=== PATIENT | female | born 1945 | race Caucasian/White ===

== ENCOUNTER 2020-08-23 13:17 | Outpatient (CLI) | payer MEDICARE, SELFPAY | END 2020-08-23 13:18 | disposition home or self-care (01) | LOC: ANHCOVIDVC 13:17 | PROVIDERS: PCP Family Medicine Sports Medicine | DX: Z23 Encounter for immunization (principal) | CPT/HCPCS: 0001A; 91300 ==

== ENCOUNTER 2020-09-13 13:05 | Outpatient (CLI) | payer MEDICARE, SELFPAY | END 2020-09-13 13:06 | disposition home or self-care (01) | LOC: ANHCOVIDVC 13:05 | PROVIDERS: PCP Family Medicine Sports Medicine | DX: Z23 Encounter for immunization (principal) | CPT/HCPCS: 0002A; 91300 ==

== ENCOUNTER 2021-02-23 15:44 | Emergency (ER) | payer MEDICARE, SELFPAY ==
--- NOTE | ~2021-02-23 | XR_ITS ---
EXAMINATION: XR ankle LT min 3V DATE: 02/23/2021 16:13 INDICATION: Left ankle injury and pain. TECHNIQUE: 4 views of left ankle were obtained. COMPARISON: None. FINDINGS: Bone alignment is normal. No fracture. Joint spaces are well maintained. There is an enthes ophyte at plantar aspect of calcaneal tuberosity. IMPRESSION: 1. No fracture. Reviewed, dictated and finalized at location A. IMPRESSION: 1. No fracture.
[2021-02-23 15:55] VITALS: BP 134/97; PULSE 76; RESP 14; TEMP 36.2; O2SAT 97
--- NOTE | 2021-02-23 16:37 | ED.LOWEXIN ---
HPI - Extremity Injury (Lower) General Chief Complaint: Extremity Injury, Lower Stated Complaint: L ANKLE INJURY Time Seen by Provider: 02/23/21 15:55 Source: patient Mode of arrival: ambulatory Limitations: no limitations History of Present Illness HPI Narrative: This is a 75-year-old female that presents to the emergency department after a left ankle injury this afternoon. Reports she twisted her ankle walking down the steps. Denies falling. Reports since she has had pain in the ankle worse with movement and relieved with rest. Denies decreased range of motion or numbness. Related Data Allergies Allergy/AdvReac Type Severity Reaction Status Date / Time No Known Allergies Allergy Verified 02/23/21 15:58 Review of Systems Review of Systems: CONSTITUTIONAL: Denies fever MUSCULOSKELETAL: Reports joint pain, and myalgia. NEUROLOGIC: Denies numbness All systems reviewed & are unremarkable except as noted in HPI and below PMFSH Past Medical History Medical History (Updated 02/23/21 @ 16:41 by Zina Diaz PA-C) History of anxiety History of hyperlipidemia Social History Social History (Updated 02/23/21 @ 16:39 by Zina Diaz PA-C) Substance use: never Exam Narrative: GENERAL: Well-appearing, well-nourished, and in no acute distress. HEAD: Normocephalic, atraumatic. EYES: EOMI. EXTREMITIES: Normal range of motion. No edema or obvious deformity. Normal DP pulses. Normal sensation SKIN: Warm, dry, no rash. NEURO: No focal deficits. Alert and oriented x3. PSYCH: Normal mood and affect Course Vital Signs Vital signs: Vital Signs Temperature 97.2 F L 02/23/21 15:55 Pulse Rate 76 02/23/21 15:55 Respiratory Rate 14 02/23/21 15:55 Blood Pressure 134/97 H 02/23/21 15:55 Pulse Oximetry 97 02/23/21 15:55 Temperature 97.2 F L 02/23/21 15:55 Pulse Rate 76 02/23/21 15:55 Respiratory Rate 14 02/23/21 15:55 Blood Pressure 134/97 H 02/23/21 15:55 Pulse Oximetry 97 02/23/21 15:55 MDM - Extremity Injury (Lower) MDM Narrative Medical decision making narrative: Patient presents to the ER for left ankle injury this afternoon. Reports a twisting injury. She is neurovascularly intact. Left ankle x-rays without acute osseous abnormalities. Patient instructed on care of ankle sprain. She is to follow-up with her primary care doctor. She was given warnings to return to the ER Imaging Data Radiologist's impression: ITS Impressions Ankle X-Ray 02/23/21 16:15 IMPRESSION: 1. No fracture. Critical Care Time Critical Care Time Critical Care Time: No Discharge Plan Discharge Clinical Impression: Ankle sprain and strain Patient Disposition: Home, Self-Care Condition: Stable Instructions: Ankle Sprain (ED) Additional Instructions: Return to the emergency department if you experience fever, redness and swelling of your leg, numbness, or any other symptoms that are concerning to you Wear JAYANT wrap and use walker. No weight on the affected leg until able to bear weight without pain. Ice and elevate extremity. Pain medication as needed and directed. Follow up with your doctor for further care. Follow-up/Referrals: Luisito,Rad Phan MD [Primary Care Provider] - 1 Week
[2021-02-23 17:15] VITALS: BP 152/61; PULSE 64; RESP 18; TEMP 36.4; O2SAT 97
== END 2021-02-23 17:15 | disposition home or self-care (01) ==
PROVIDERS: Emergency Provider Emergency Medicine; PCP Family Medicine Sports Medicine
DX: S93.402A Sprain of unspecified ligament of left ankle, initial encounter (principal); S96.912A Strain of unspecified muscle and tendon at ankle and foot level, left foot, initial encounter; E78.5 Hyperlipidemia, unspecified; X50.9XXA Other and unspecified overexertion or strenuous movements or postures, initial encounter
CPT/HCPCS: 73610; 99283

== ENCOUNTER 2021-04-09 08:46 | Emergency (ER) | payer MEDICARE, SELFPAY ==
--- NOTE | ~2021-04-09 | XR_ITS ---
EXAMINATION: XR chest 2V DATE: 04/09/2021 09:58 INDICATION: Cough TECHNIQUE: PA and lateral views of the chest are obtained. COMPARISON: 06/18/2018 FINDINGS: The lungs are free of acute opacities. There is no pleural effusion or pneumothorax. The ca rdiomediastinal silhouette is normal. There is moderate thoracic spondylosis. IMPRESSION: 1. No acute cardiopulmonary abnormality. Reviewed, dictated and finalized at location A. ENSION CORD TIER
[2021-04-09 09:09] VITALS: BP 131/64; PULSE 66; RESP 16; TEMP 36.7
--- NOTE | 2021-04-09 09:38 | ECG_ITS ---
Measurements Intervals [place] Rate: 59 P: 28 NH: 145 QRS: -8 QRSD: 93 T: 11 QT: 411 QTc: 408 Interpretive Statements SINUS BRADYCARDIA BORDERLINE T WAVE ABNORMALITY- INFERIOR LEADS BASELINE ARTIFACT- I, II, III, AVR, AVL, AVF BORDERLINE ECG Electronically Signed On 04-09-2021 10:57:55 DIFFERENTIAL SPECIALIST by Gui Whelan D.O.
[2021-04-09 10:22] LABS: Basophils Absolute Auto 0.1 K/mm3 (0.0-0.1); Basophils Percent Auto 1.3 % (0.2-1.2); Eosinophils Absolute Auto 0.5 K/mm3 (0-0.3); Eosinophils Percent Auto 6.7 % (0-4.4); Hematocrit 40.8 % (37.0-47.0); Hemoglobin 13.6 g/dL (12.0-15.0); Immature Granulocyte Absolute 0.02 K/mm3 (0.00-0.031); Immature Granulocyte Percent A 0.3 % (0-0.5); Lymphocytes Absolute Auto 2.11 K/mm3 (0.9-3.2); Mean Corpuscular HGB Conc 33.3 g/dl (32-36); Mean Corpuscular Hemoglobin 32.8 pg (26-34); Mean Corpuscular Volume 98.3 fl (80-100); Mean Platelet Volume 10.6 fl (7.4-10.4); Monocytes Absolute Auto 0.7 K/mm3 (0.1-0.6); Monocytes Percent Auto 10.5 % (2.6-8.5); Neutrophils Absolute Auto 3.6 K/mm3 (1.3-6.7); Neutrophils Percent Auto 51.2 % (45.5-73.1); Platelet Count Result 216 k/mm3 (150-375); Red Blood Count 4.15 M/mm3 (4.2-5.4); Red Cell Distribution Width 12.4 % (11.5-14.5)
[2021-04-09 10:36] LABS: Alanine Aminotransferase 19 U/L (4-35); Albumin Level 3.9 g/dL (3.5-5.1); Alkaline Phosphatase 57 U/L (38-126); Anion Gap 5 mmol/L (8-16); Aspartate Amino Transferase 28 U/L (14-36); Bilirubin,Total 1.2 mg/dL (0.2-1.3); Blood Urea Nitrogen 9 mg/dL (7-17); Carbon Dioxide 29 mmol/L (22-30); Chloride 101 mmol/L (98-107); Estimated CRCL calculation 50 ml/min; Estimated Glomerular Filt Rate > 60; Glucose 113 mg/dL (65-110); Potassium 3.3 mmol/L (3.4-5.0); Sodium 135 mmol/L (137-145)
--- NOTE | 2021-04-09 11:22 | ED.GENADULT ---
HPI - General Adult General Chief complaint: Upper Respiratory Infection Stated complaint: congestion, cough Time Seen by Provider: 04/09/21 08:57 History of Present Illness HPI narrative: Patient is a 75-year-old female who presents ER with cough and cold symptoms. No fevers or chills or sweats. Reports she was having sinus congestion with postnasal drip. She has cough that is worse in the morning. Mild fatigue with exertion. No chest pain or chest pressure. She is up-to-date on her Covid vaccinations. No loss of taste or smell. No known sick contacts. Related Data Allergies Allergy/AdvReac Type Severity Reaction Status Date / Time No Known Allergies Allergy Verified 02/23/21 15:58 Review of Systems Review of Systems: All systems reviewed & are unremarkable except as noted in HPI and below Constitutional: Constitutional: Denies chills, Reports fatigue and Denies fever(s) ENT: Reports nasal congestion and Denies sore throat Cardiovascular: Cardiovascular: Denies chest pain, Denies rapid heart rate and Denies radiating jaw, neck or arm pain Respiratory: Respiratory: Reports cough, Denies dyspnea and Denies wheezing Gastrointestinal: Gastrointestinal: Denies abdominal pain, Denies nausea and Denies vomiting PMFSH Past Medical History Medical History (Updated 04/09/21 @ 11:29 by Santo Goodrich MD) History of anxiety History of hyperlipidemia History of seizures Surgical History Surgical History (Updated 04/09/21 @ 11:25 by Santo Goodrich MD) History of cholecystectomy History of partial hysterectomy Social History Social History (Updated 02/23/21 @ 16:39 by Zina Diaz PA-C) Substance use: never Exam Narrative: GENERAL: Well-appearing, well-nourished, and in no acute distress. HEAD: Normocephalic, atraumatic. EYES: PERRL and EOMI. CHEST: Clear to auscultation. No respiratory distress. HEART: Regular rate and rhythm. Normal peripheral pulses. ABDOMEN: Soft, nontender, nondistended. EXTREMITIES: Normal range of motion. No edema. SKIN: Warm, dry, no rash. NEURO: Alert and oriented x3. PSYCH: Normal mood and affect. Course Course Emergency Course: Patient resting comfortably. Informed of results. Discharge home. Vital Signs Vital signs: Vital Signs Temperature 98.1 F 04/09/21 09:09 Pulse Rate 66 04/09/21 09:09 Respiratory Rate 16 04/09/21 09:09 Blood Pressure 131/64 04/09/21 09:09 Temperature 98.1 F 04/09/21 09:09 Pulse Rate 66 04/09/21 09:09 Respiratory Rate 16 04/09/21 09:09 Blood Pressure 131/64 04/09/21 09:09 Medical Decision Making Vital Signs Vital Signs: Vital Signs Temperature 98.1 F 04/09/21 09:09 Pulse Rate 66 04/09/21 09:09 Respiratory Rate 16 04/09/21 09:09 Blood Pressure 131/64 04/09/21 09:09 Temperature 98.1 F 04/09/21 09:09 Pulse Rate 66 04/09/21 09:09 Respiratory Rate 16 04/09/21 09:09 Blood Pressure 131/64 04/09/21 09:09 Lab Data Result diagrams: 04/09/21 10:13 04/09/21 10:13 Labs: Lab Results 04/09/21 04/09/21 Range/Units 10:13 10:13 WBC 7.0 (4.5-10.0) K/mm3 RBC 4.15 L (4.2-5.4) M/mm3 Hgb 13.6 (12.0-15.0) g/dL Hct 40.8 (37.0-47.0) % MCV 98.3 (80-100) fl MCH 32.8 (26-34) pg MCHC 33.3 (32-36) g/dl RDW 12.4 (11.5-14.5) % Plt Count 216 (150-375) k/mm3 MPV 10.6 H (7.4-10.4) fl Immature Gran % (Auto) 0.3 (0-0.5) % Neut % (Auto) 51.2 (45.5-73.1) % Lymph % (Auto) 30.0 (18.3-44.2) % King % (Auto) 10.5 H (2.6-8.5) % Eos % (Auto) 6.7 H (0-4.4) % Baso % (Auto) 1.3 H (0.2-1.2) % Lymph # (Auto) 2.11 (0.9-3.2) K/mm3 King # (Auto) 0.7 H (0.1-0.6) K/mm3 Eos # (Auto) 0.5 H (0-0.3) K/mm3 Baso # (Auto) 0.1 (0.0-0.1) K/mm3 Abs Immat Gran (auto) 0.02 (0.00-0.031) K/mm3 Absolute Neuts (auto) 3.6 (1.3-6.7) K/mm3 Absolute Nucleated RBC 0.0 (0.0-0.012) K/mm3 Nucleated RBC
[2021-04-09 11:59] VITALS: BP 147/64; PULSE 60; RESP 18; O2SAT 99
== END 2021-04-09 12:00 | disposition home or self-care (01) ==
PROVIDERS: Emergency Provider Emergency Medicine; PCP Family Medicine Sports Medicine
DX: J06.9 Acute upper respiratory infection, unspecified (principal); E78.5 Hyperlipidemia, unspecified; R00.1 Bradycardia, unspecified; R94.31 Abnormal electrocardiogram [ECG] [EKG]
CPT/HCPCS: 36415; 71046; 80053; 85025; 93005; 99283

== ENCOUNTER → 2021-04-28 09:58 | Outpatient (CLI) | payer MEDICARE, SELFPAY ==
--- NOTE | ~2021-04-28 | DEXA_ITS ---
Bone Density Report Name: VAISHALI CELESTE Age: 75 Sex: Female Ethnicity: White Date of : 1945 Indication: postmenopausal; screening for osteoporosis; height loss; prior fracture; hysterectomy; Referring Provider: CARRIE, VIKI Phan Study: Bone densitometry was performed. Exam Date: April 28, 2021 Accession number: [id number] Bone Density: Region BMD T-score Z-score Classification AP Spine (L1-L4) 0.888 -1.4 1.1 Osteopenia Femoral Neck (Left) 0.497 -3.2 -1.0 Osteoporosis Total Hip (Left) 0.722 -1.8 0.1 Osteopenia Femoral Neck (Right) 0.504 -3.1 -1.0 Osteoporosis Total Hip (Right) 0.742 -1.6 0.2 Osteopenia Total Hip Mean 0.732 -1.7 0.2 Osteopenia World Health Organization criteria for BMD impression classify patients as: Normal (T-score at or above -1.0), Osteopenia (T-score between -1.0 and -2.5), or Osteoporosis (T-score at or below -2.5). 10-year Fracture Risk: FRAX not reported because: Some T-score for Spine Total or Hip Total or Femoral Neck at or below -2.5 Clinical Information Provided by Patient: Has had a low trauma fracture Has the following medical conditions: Hysterectomy Patient maximum height was 62.0 Menopause Age: 48 No regular weight bearing exercise Does not regularly consume dairy products Drinks caffeinated beverages Onset of menses at age 14 Number of children 2 Impression: The patient has established osteoporosis, based on the Left Femoral Neck T-score and the existence of a prior fracture. The patient has risk factors, including: previous fracture. Discussion: HIGH RISK OF FRACTURE. BONE DENSITY IS UNDESIRABLY LOW AT ONE OR MORE SKELETAL SITES, CONSISTENT WITH POSTMENOPAUSAL OSTEOPOROSIS. This patient's lowest T-score, in a patient who has previously fractured, meets the World Health Organization's (WHO) criteria for severe osteoporosis. In untreated patients, the risk of osteoporotic fracture increases approximately two-fold for each 1.0 SD decrease in T-score. Low bone density is not the only risk factor for fracture; also consider factors such as patient's age, frailty or poor health, risk of falling, risk of injury, previous osteoporotic fracture, family history of osteoporosis, cigarette smoking, low body weight, etc. Not everyone with low bone mineral density has osteoporosis; osteomalacia and other metabolic bone disorders should also be considered. Patients who have osteoporosis should be evaluated for specific diseases and conditions (secondary causes) that may cause or contribute to bone loss. The [place] Association of Clinical Endocrinologists (AACE) and National Osteoporosis Foundation (NOF) recommend pharmacologic intervention for all postmenopausal women whose T-score is in this range. The patient should follow a healthful lifestyle (good nutrition with adequate
== END ==
PROVIDERS: PCP Family Medicine Sports Medicine; Visit Provider Family Medicine Sports Medicine
DX: Z78.0 Asymptomatic menopausal state (principal); M85.88 Other specified disorders of bone density and structure, other site; M81.0 Age-related osteoporosis without current pathological fracture; M85.852 Other specified disorders of bone density and structure, left thigh; M85.851 Other specified disorders of bone density and structure, right thigh
CPT/HCPCS: 77080

== ENCOUNTER 2021-12-05 11:38 | Emergency (ER) | payer MEDICARE, SELFPAY ==
--- NOTE | ~2021-12-05 | XR_ITS ---
EXAMINATION: XR hip RT min 3V w AP pelvis DATE: 12/05/2021 12:47 INDICATION: Right hip pain TECHNIQUE: Anteroposterior view of the pelvis and anteroposterior, frog leg and crosstable lateral vi ews of the right hip were obtained. COMPARISON: None. FINDINGS: Alignment is normal. No fracture or suspected avascular necrosis. Bilateral hip joint spaces are rela tively preserved. Lower lumbar spondylosis with severe bilateral lower lumbar facet osteoarthritis. 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 IMPRESSION: 1. Normal right hip joint space with no acute osseous abnormality. Reviewed, dictated and finalized at location A.
--- NOTE | ~2021-12-05 | US_ITS ---
EXAMINATION:US venous doppler LE RT INDICATION:Right leg burning sensation with pain TECHNIQUE: Multiple grayscale, color flow and Doppler images of the right lower extremity deep venous systems were obtained and reviewed. COMPARISON:No prior studies for comparison. FINDINGS: The common femoral, superficial femoral and popliteal veins demonstrate normal respiratory variation, augmentation and compressibility. Color flow is also seen within the posterior tibial, pe roneal, greater saphenous and profunda veins. IMPRESSION: 1: No lower extremity deep venous thrombosis. Reviewed, dictated and finalized at location A.
[2021-12-05 11:48] VITALS: BP 154/72; PULSE 68; RESP 14; TEMP 36.7; O2SAT 96
--- NOTE | 2021-12-05 12:25 | ED.LOWEXIN ---
HPI - Extremity Injury (Lower) General Chief Complaint: Extremity Injury, Lower Stated Complaint: Right Leg Pain Time Seen by Provider: 12/05/21 12:13 History of Present Illness HPI Narrative: Pt complains of pain in entire right leg off and on since early October. Pt denies injury. Pt denies fever or swelling. Pt says she feels it up in her hip and all the way down to her right foot. Pt says it is worse when she moves it and bears weight but is present at rest as well. Related Data Allergies Allergy/AdvReac Type Severity Reaction Status Date / Time No Known Allergies Allergy Verified 02/23/21 15:58 Review of Systems Review of Systems: All systems reviewed & are unremarkable except as noted in HPI and below PMFSH Past Medical History Medical History (Updated 12/05/21 @ 13:14 by Keshia Hassan III, DO) History of anxiety History of hyperlipidemia History of seizures Surgical History Surgical History (Updated 04/09/21 @ 11:25 by Santo Goodrich MD) History of cholecystectomy History of partial hysterectomy Social History Social History (Updated 02/23/21 @ 16:39 by Zina Diaz PA-C) Substance use: never Exam Const: General: healthy appearing Nutritional Appearance: well nourished Orientation/consciousness: patient oriented x3 Limitations: no limitations Eyes: Conjunctivae: conjunctivae normal EOM: EOMs intact bilaterally Neck: Neck: normal visual inspection Chest: Chest palpation & inspection: normal inspection of the chest Resp: Effort & Inspection: normal respiratory effort Auscultation: clear to auscultation bilaterally Cardio: Rate: regular rate Rhythm: regular rhythm GI: GI Palp: Yes Soft to palpation Auscultation: normal bowel sounds Back/Spine/Pelvis: Back: no CVA tenderness Skin: General skin exam: normal color Rashes: no rashes Wounds: no wounds Neuro: General: patient oriented x3 Cranial nerves: Yes Nystagmus not present Speech: normal speech Extrem: General: normal to inspection, no clubbing, cyanosis or edema and no pedal edema Other: tender to palpation along lateral right leg and hip but no deformity nor swelling noted. Psych: Mental Status: mental status grossly normal Affect: normal affect Attitude: cooperative Course Vital Signs Vital signs: Vital Signs Temperature 98.0 F 12/05/21 11:48 Pulse Rate 68 12/05/21 11:48 Respiratory Rate 14 12/05/21 11:48 Blood Pressure 154/72 H 12/05/21 11:48 Pulse Oximetry 96 12/05/21 11:48 Temperature 98.0 F 12/05/21 11:48 Pulse Rate 68 12/05/21 11:48 Respiratory Rate 14 12/05/21 11:48 Blood Pressure 154/72 H 12/05/21 11:48 Pulse Oximetry 96 12/05/21 11:48 Discharge Plan Discharge Clinical Impression: Right hip pain Patient Disposition: Home, Self-Care Condition: Stable Instructions: Antibiotic Form, Sciatica (ED), Arthralgia (ED) Prescriptions: New prednisone 50 mg tablet 50 mg PO DAILY Qty: 5 0RF cyclobenzaprine 10 mg tablet 10 mg PO TID Qty: 14 0RF hydrocodone-acetaminophen 5-325 mg tablet 1 tablet PO Q6H PRN (Reason: pain) Qty: 10 0RF Follow-up/Referrals: Luisito,Rad Phan MD [Primary Care Provider] -
== END 2021-12-05 13:34 | disposition home or self-care (01) ==
PROVIDERS: Emergency Provider Emergency Medicine; PCP Family Medicine Sports Medicine
DX: M25.551 Pain in right hip (principal); E78.5 Hyperlipidemia, unspecified; Z90.711 Acquired absence of uterus with remaining cervical stump
CPT/HCPCS: 73502; 93971; 99284

== ENCOUNTER 2021-12-07 11:55 | Emergency (ER) | payer MEDICARE, SELFPAY ==
--- NOTE | ~2021-12-07 | CT_ITS ---
EXAMINATION: CT cervical spine wo con DATE: 12/07/2021 12:46 INDICATION: Neck pain after fall TECHNIQUE: Computed tomography (CT) of the cervical spine was performed without intravenous contrast. The dose-length product was 359 mGy-cm. Automated exposure control and iterative reconstruction tech nique were employed. COMPARISON: None FINDINGS: There is degenerative disc disease at C3-4 through C7-T1. There is multilevel uncinate and facet hypertrophy. Craniovertebral junction is normal. Odontoid process is normal craniovertebral lucas ction is normal. There is mucosal thickening of the sphenoid sinus. Mastoids are pneumatized. No sign ificant paraspinal soft tissue abnormality. Lung apices are unremarkable. There is intracranial ather osclerosis. IMPRESSION: 1. No acute abnormality of the cervical spine. 2: Moderate cervical spondylosis. Reviewed, dictated and finalized at location A.
--- NOTE | ~2021-12-07 | CT_ITS ---
EXAMINATION: CT brain wo con INDICATION: Head injury COMPARISON: 02/19/2018 TECHNIQUE: Standard unenhanced head CT. The dose-length product (DLP) was 605.33 mGy-cm. The mA was a djusted according to patient size. Iterative reconstruction technique was employed. FINDINGS: There is no acute intraparenchymal hemorrhage. No evidence of mass lesion. No evidence of a cute infarction. There is mild periventricular and subcortical hypodensity probably related to small vessel ischemic disease. There is mild prominence of the sulci and ventricles related to cerebral atr ophy. Intracranial calcified cerebral atherosclerosis is noted. There are no extra-axial collections. There is no mass effect or midline shift. The orbits and soft tissues are unremarkable. There is mil d mucosal thickening of the paranasal sinuses. IMPRESSION: 1. No acute intracranial abnormality. 2. Age related findings. Reviewed, dictated and finalized at location B.
[2021-12-07 11:57] VITALS: BP 155/69; PULSE 88; RESP 18; TEMP 36.4; O2SAT 96
[2021-12-07 12:09] VITALS: BP 143/70; PULSE 91; RESP 15; O2SAT 97
--- NOTE | 2021-12-07 12:11 | ED.FALL ---
HPI - Fall General Chief Complaint: Fall Stated Complaint: HI Time Seen by Provider: 12/07/21 12:09 Source: patient and family Mode of arrival: ambulatory Limitations: no limitations History of Present Illness HPI Narrative: Patient slipped and hit her head on the bathtub while is outside the bathroom 30 minutes prior to arrival to the emergency room, no loss of consciousness, does not take blood thinner complaint: fall Fall from: standing Place fall occurred: home Loss of consciousness: none Related Data Allergies Allergy/AdvReac Type Severity Reaction Status Date / Time No Known Allergies Allergy Verified 12/07/21 12:09 Review of Systems Review of Systems: All systems reviewed & are unremarkable except as noted in HPI and below PMFSH Past Medical History Medical History History of anxiety History of hyperlipidemia History of seizures Surgical History Surgical History History of cholecystectomy History of partial hysterectomy Social History Social History Substance use: never Exam Narrative: General appearance: Well-developed, well-nourished Skin: Normal color Head: Normocephalic, nontraumatic Eyes: Clear conjunctiva ENT: Oropharynx normal, ears normal, nose normal Neck: Supple, nontender Chest and respiratory: Airway patent, no respiratory distress, no accessory muscle use Heart: Regular rate/rhythm Abdomen: Soft, nontender, no organomegaly, quiet bowel sounds Vascular: Normal peripheral pulses, normal capillary refill. Musculoskeletal: Normal range of motion, nontender back Neurologic: Alert and oriented ?3, CELERY PACKER is normal as tested, no gross motor deficit Course Vital Signs Vital signs: Vital Signs Temperature 36.4 C 12/07/21 11:57 Pulse Rate 88 12/07/21 11:57 Respiratory Rate 18 12/07/21 11:57 Blood Pressure 155/69 H 12/07/21 11:57 Pulse Oximetry 96 12/07/21 11:57 Oxygen Delivery Room Air 12/07/21 11:57 Temperature 36.4 C 12/07/21 11:57 Pulse Rate 91 12/07/21 12:09 Respiratory Rate 15 12/07/21 12:09 Blood Pressure 143/70 H 12/07/21 12:09 Pulse Oximetry 97 12/07/21 12:09 Oxygen Delivery Room Air 12/07/21 11:57 MDM - Fall Differential Diagnosis Differential diagnosis: Likely concussion without loss of consciousness Imaging Data Radiologist's impression: Impressions Head CT 12/07/21 12:49 IMPRESSION: 1. No acute intracranial abnormality. 2. Age related findings. Cervical Spine CT 12/07/21 12:50 IMPRESSION: 1. No acute abnormality of the cervical spine. 2: Moderate cervical spondylosis. Discharge Plan Discharge Clinical Impression: Fall, CHI (closed head injury) Patient Disposition: Home, Self-Care Condition: Stable Instructions: Antibiotic Form, Head Injury (ED), Fall Prevention (ED) Additional Instructions: Return if symptoms are worsening , call your family physician for appointment, take Tylenol as as needed for aches and pain, continue home medications. Prescriptions: No Action prednisone 50 mg tablet 50 mg PO DAILY Qty: 5 0RF cyclobenzaprine 10 mg tablet 10 mg PO TID Qty: 14 0RF hydrocodone-acetaminophen 5-325 mg tablet 1 tablet PO Q6H PRN (Reason: pain) Qty: 10 0RF Follow-up/Referrals: Luisito,Rad Phan MD [Primary Care Provider] -
[2021-12-07 13:23] VITALS: BP 128/73; PULSE 78; RESP 15; O2SAT 97
== END 2021-12-07 13:25 | disposition home or self-care (01) ==
PROVIDERS: Emergency Provider Emergency Medicine; PCP Family Medicine Sports Medicine
DX: S09.90XA Unspecified injury of head, initial encounter (principal); F41.9 Anxiety disorder, unspecified; E78.5 Hyperlipidemia, unspecified; G40.909 Epilepsy, unspecified, not intractable, without status epilepticus; W18.30XA Fall on same level, unspecified, initial encounter
CPT/HCPCS: 70450; 72125; 99283

== ENCOUNTER 2022-01-03 09:38 | Outpatient (RCR) | payer MEDICARE, SELFPAY ==
--- NOTE | 2022-01-03 11:37 | PTOPEVAL ---
PHYSICAL THERAPY INITIAL EVALUATION. Thank you for referring Malathi Humphries to [facility].? The patient is scheduled to be seen for therapy? 1x/week for 4 weeks. Please review, sign, date and return this plan of care MANAN. I agree with and certify that the following plan of care is medically necessary. Referring Physician Date Attending Provider: Rad Jorge, MD *PT Outpatient Evaluation Start: 01/03/22 Evaluation Information Diagnosis R hip pain Onset 1 month Subjective Information Pt states she has hip pain as Query Text:As Reported By Patient/ well as pain down to her ankle Family . She states sometimes it is a sharp pain, other time it tingles. Pt states she was given pain pills but these have not seemed to help. Pt states she currently has tingling in her foot. Pain Assessment Right Leg(s) Reported Pain Level 8 Pain Description Aching,Heavy,Radiating, Tightness Pain Radiation Right Leg Pain Frequency Acute,Intermittent Lowest Pain Intensity 5 Greatest Pain Intensity 9 Pain Aggravating Factors None Lower Extremity Range of Motion General Lower Extremity Range of Motion WFL/Left,WFL/Right Lower Extremity Muscle Strength Testing Gross Lower Extremity Strength alexandra hip flexion 5/5 R hip abduction 3/5 L hip abduction 4+/5 alexandra hip extension 4-/5 alexandra knee flexion/extension 4+/5 Muscle Length Testing Two-Joint Hip Flexor Shortened Muscles Short (R) Rectus Femoris Piriformis w/Hip Flexion <90 Degrees (R) Mild Tightness Left Hamstring Length -30 Right Hamstring Length -30 Palpation Assessment Palpation tenderness in R glute med Special Test- Slump Test Negative Left,Positive Right Hip Scouring Negative Left,Negative Right Balance Assessment 5 Time Sit to Stand Time in Seconds 16 5 Time Sit to Stand Comments without the use of UEs Gait Assessment Ambulation Assistive Devices None Other Gait Observations lack of terminal hip ext alexandra 2 Minute Walk Total Distance Walked (feet) 415 2 Minute Walk Gait Speed Score (feet/s) 3.45 Safety Assessment Factors Affecting Safety No Concerns Manual Therapy Side Right Manual Therapy Location Hip Patient Position Prone Manual Therapy Treatment Soft Tissue Mobilization Treatment Comments
--- NOTE | 2022-01-10 11:00 | PCPTNOTE ---
Patient called & cancelled scheduled appointment this date due to being sick.
--- NOTE | 2022-01-12 12:42 | PCPTNOTE ---
Patient called & cancelled scheduled appointment this date due to being sick and going to PCP at 13:00.
--- NOTE | 2022-01-17 11:15 | PCPTNOTE ---
Patient called & cancelled scheduled appointment this date due to family emergency.
--- NOTE | 2022-01-17 11:47 | PCPTNOTE ---
Attending Provider: Rad Jorge, Patient:Malathi Humphries Date of :1945 PHYSICAL THERAPY DISCHARGE SUMMARY Patient called today and cancelled all of her remaining appointments and would like to be discharged at this time as her brother is in the hospital. Patient?s initial visit was on 01/03/2022 10:00 and she had a total of 1 visits, she has previously cancelled 2 appointments d/t being sick. Thank you for referring this patient to [facility]. Please review, sign, date and return this discharge summary MANAN. I have been updated about the patient's current status and I agree with discharge from the above service at this time. Referring Physician Date
== END 2022-01-17 14:07 | disposition home or self-care (01) ==
LOC: ANHPT 09:38
PROVIDERS: PCP Family Medicine Sports Medicine; Referring Provider Family Medicine Sports Medicine; Visit Provider Family Medicine Sports Medicine
DX: M25.551 Pain in right hip (principal)
CPT/HCPCS: 97112; 97140; 97161

== ENCOUNTER 2022-04-25 06:15 | Emergency (ER) | payer MEDICARE, SELFPAY ==
[2022-04-25 06:25] VITALS: BP 180/60; PULSE 58; RESP 18; TEMP 36.4; O2SAT 97
[2022-04-25 08:01] VITALS: BP 185/69; PULSE 56; RESP 18; O2SAT 98
--- NOTE | 2022-04-25 08:12 | ED.GENADULT ---
HPI - General Adult General Chief complaint: Neck Pain/Injury Stated complaint: r shoulder/neck pain Time Seen by Provider: 04/25/22 08:00 History of Present Illness HPI narrative: 76-year-old female presented to the emergency department for evaluation of right-sided neck pain. Patient states that she was getting in bed she felt a pop in her right lateral neck that radiate from her shoulder to behind her right ear. Patient states she did take some ibuprofen last night with no significant improvement. Patient denies any associated headache, numbness or weakness. Patient states he does have some nausea associated with the pain. Related Data Home Medications Medication Instructions Recorded Confirmed escitalopram oxalate 20 mg tablet mg 04/25/22 Allergies Allergy/AdvReac Type Severity Reaction Status Date / Time No Known Allergies Allergy Verified 04/25/22 07:58 Review of Systems Review of Systems: CONSTITUTIONAL: Denies fever, chills, or sweats. EYES: Denies visual changes, redness, or discharge. ENT: Denies rhinorrhea, congestion, sore throat, or otalgia. CARDIOVASCULAR: Denies chest pain, palpitations, or edema. RESPIRATORY: Denies cough or dyspnea. GASTROINTESTINAL: Denies abdominal pain, nausea, vomiting, or diarrhea. GENITOURINARY: Denies dysuria or hematuria. SKIN: Denies rash or itching. MUSCULOSKELETAL: Neck pain See HPI NEUROLOGIC: Denies headache, numbness, or weakness. PMFSH Past Medical History Medical History History of anxiety History of hyperlipidemia History of seizures Surgical History Surgical History History of cholecystectomy History of partial hysterectomy Social History Social History Substance use: never Exam Narrative: APPEARANCE: Well appearing, no pain, no distress, well-nourished. HEAD: normocephalic, atraumatic. EYES: PERRLA/EOMI, conjunctivae clear. NOSE: Normal no drainage EARS:TMS clear with good light reflex. THROAT: Pharynx clear, no exudate. NECK: Supple. No adenopathy, no masses. Right lateral muscular tenderness to palpation. No midline tenderness to palpation. Normal range of motion when looking to the left. Decreased range of motion when turning to the right. RESPIRATORY: Airway patent, respirations nonlabored. Clear to auscultation bilaterally, no rales, rhonchi, wheezing. CARDIOVASCULAR: Regular rate and rhythm without murmurs rubs or gallops. ABDOMINAL: Soft, nontender, nondistended, normal bowel sounds MUSCULOSKELETAL: Moves all extremities. Strength/ROM intact, No edema, No calf tenderness. NEURO: Alert. Cranial nerves II through XII intact. Grossly intact. Normal finger to toe. No ataxia or discoordination. Normal reflexes present, normal strength. SKIN: Warm, dry. Normal Color Course Course Emergency Course: Muscular injury to right lateral paraspinal muscles. Patient reports she can take Tylenol and ibuprofen. Patient will be started on a Medrol Dosepak and provided Flexeril for muscle spasm. Patient was educated on the treatment plan and on the importance having close follow-up with her primary care physician. All questions concerns were addressed. Vital Signs Vital signs: Vital Signs Temperature 97.5 F L 04/25/22 06:25 Pulse Rate 58 L 04/25/22 06:25 Respiratory Rate 18 04/25/22 06:25 Blood Pressure 180/60 H 04/25/22 06:25 Pulse Oximetry 97 04/25/22 06:25 Oxygen Delivery Room Air 04/25/22 06:25 Temperature 97.5 F L 04/25/22 06:25 Pulse Rate 56 L 04/25/22 08:01 Respiratory Rate 18 04/25/22 08:01 Blood Pressure 185/69 H 04/25/22 08:01 Pulse Oximetry 98 04/25/22 08:01 Oxygen Delivery Room Air 04/25/22 06:25 Medical Decision Making Vital Signs Vital Signs: Vital Signs Temperature 97.5 F L 04/25/22 06:25 Pulse Rate 58 L 04/25/22 06:25 Re
[2022-04-25] MEDS: CYCLOBENZAPRINE HCL 10 MG TABLET PO (08:25)
[2022-04-25] MEDS: ACETAMINOPHEN 325 MG TABLET 650 MG PO (08:25)
== END 2022-04-25 08:43 | disposition home or self-care (01) ==
LOC: ANHED 08:31
PROVIDERS: Emergency Provider Emergency Medicine; PCP Family Medicine Sports Medicine
DX: M54.2 Cervicalgia (principal); F41.9 Anxiety disorder, unspecified; G40.909 Epilepsy, unspecified, not intractable, without status epilepticus; E78.5 Hyperlipidemia, unspecified
CPT/HCPCS: 99283; A9270

== ENCOUNTER 2022-10-27 09:50 | Outpatient (CLI) | payer MEDICARE, SELFPAY ==
--- NOTE | ~2022-10-27 | MR_ITS ---
EXAMINATION: MR cervical spine wo con DATE: 10/27/2022 10:38 INDICATION: Neck pain. Unspecified convulsions. TECHNIQUE: Magnetic resonance imaging (MRI) of the cervical spine was performed without intravenous c ontrast. Sequences included sagittal T2-weighted FSE, sagittal T2-weighted FS FSE, sagittal T1-weight ed FSE, axial MERGE, and axial T2-weighted FSE. COMPARISON: CT cervical spine 12/07/2021 FINDINGS: Bone alignment is normal. Vertebral body heights are normal. There is mildly decreased disc height at C3-C4 and C4-C5 and severely decreased disc height at C5-C6 and C6-C7 with endplate remode ling. The spinal cord signal intensity is normal. The following disc levels are specifically discusse d: C2-C3: There is a central extrusion. There is mild right and moderate left uncovertebral joint osteoa rthritis. There is severe bilateral facet joint osteoarthritis. There is mild bilateral neural forami nal stenosis. There is mild central canal stenosis. C3-C4: There is a central extrusion. There is moderate bilateral uncovertebral joint osteoarthritis. There is severe bilateral facet joint osteoarthritis. There is moderate bilateral neural foraminal st enosis. There is mild central canal stenosis. C4-C5: There is a central extrusion. There is moderate bilateral uncovertebral joint osteoarthritis. There is severe bilateral facet joint osteoarthritis. There is moderate right and mild left neural fo raminal stenosis. There is mild central canal stenosis. C5-C6: The disc is bulging. There is severe bilateral uncovertebral joint osteoarthritis. There is se erica bilateral facet joint osteoarthritis. There is mild bilateral neural foraminal stenosis. There i s mild central canal stenosis. C6-C7: The disc is bulging. There is severe bilateral uncovertebral joint osteoarthritis. There is mi ld bilateral facet joint osteoarthritis. There is mild bilateral neural foraminal stenosis. There is mild central canal stenosis. C7-T1: The disc does not extend beyond the endplate margin. There is no uncovertebral joint osteoarth ritis. There is severe bilateral facet joint osteoarthritis. There is no neural foraminal stenosis. T here is no central canal stenosis. IMPRESSION: 1. Severe cervical spondylosis. Reviewed, dictated and finalized at location A.
--- NOTE | ~2022-10-27 | MR_ITS ---
EXAMINATION: MR brain/brain stem wo con DATE: 10/27/2022 10:28 INDICATION: Unspecified convulsions. TECHNIQUE: Magnetic resonance imaging (MRI) of the brain and brainstem was performed without intraven ous contrast. COMPARISON: Head CT 12/07/2021 FINDINGS: There are scattered areas of nonspecific increased T2-weighted signal intensity in the cere bral white matter, which is within normal limits for the patient's age. There is no intracranial hemo rrhage, acute infarction, or abnormal intracranial mass lesion. The ventricles are normal in size. Th e paranasal sinuses are clear. The orbits are normal. The mastoid air cells are normal. IMPRESSION: 1. Normal aging brain. Reviewed, dictated and finalized at location A. IMPRESSION: 1. Normal aging brain.
[2022-10-27 11:32] LABS: Basophils Absolute Auto 0.1 K/mm3 (0.0-0.1); Basophils Percent Auto 0.7 % (0.2-1.2); Eosinophils Absolute Auto 0.2 K/mm3 (0-0.3); Eosinophils Percent Auto 2.9 % (0-4.4); Hematocrit 44.8 % (37.0-47.0); Hemoglobin 14.5 g/dL (12.0-15.0); Immature Granulocyte Absolute 0.02 K/mm3 (0.00-0.031); Immature Granulocyte Percent A 0.3 % (0-0.5); Lymphocytes Absolute Auto 1.87 K/mm3 (0.9-3.2); Lymphocytes Percent Auto 27.5 % (18.3-44.2); Mean Corpuscular HGB Conc 32.4 g/dl (32-36); Mean Corpuscular Hemoglobin 31.8 pg (26-34); Mean Corpuscular Volume 98.2 fl (80-100); Mean Platelet Volume 9.6 fl (7.4-10.4); Monocytes Absolute Auto 0.6 K/mm3 (0.1-0.6); Neutrophils Absolute Auto 4.1 K/mm3 (1.3-6.7); Neutrophils Percent Auto 59.6 % (45.5-73.1); Platelet Count Result 237 k/mm3 (150-375); Red Blood Count 4.56 M/mm3 (4.2-5.4); Red Cell Distribution Width 12.9 % (11.5-14.5); White Blood Count 6.8 K/mm3 (4.5-10.0)
[2022-10-27 11:42] LABS: Alanine Aminotransferase 28 U/L (6-35); Albumin Level 4.1 g/dL (3.5-5.1); Alkaline Phosphatase 62 U/L (38-126); Anion Gap 3 mmol/L (8-16); Aspartate Amino Transferase 30 U/L (14-36); Blood Urea Nitrogen 15 mg/dL (7-17); Calcium 8.6 mg/dL (8.4-10.2); Carbon Dioxide 30 mmol/L (22-30); Chloride 105 mmol/L (98-107); Estimated Glomerular Filt Rate > 60; Glucose 94 mg/dL (65-110); Potassium 4.3 mmol/L (3.4-5.0); Sodium 138 mmol/L (137-145)
[2022-10-27 12:51] LABS: Folic Acid 10.9 ng/mL (2.76->20)
== END 2022-10-27 09:51 | disposition home or self-care (01) ==
PROVIDERS: PCP Family Medicine Sports Medicine; Visit Provider Psychiatry & Neurology Neurology
DX: R56.9 Unspecified convulsions (principal); R27.0 Ataxia, unspecified; M47.892 Other spondylosis, cervical region
CPT/HCPCS: 36415; 70551; 72141; 80053; 82607; 82746; 84436; 84443; 85025; 86038; 86039

== ENCOUNTER 2024-07-09 07:50 | Outpatient (CLI) | payer MEDICARE, SELFPAY ==
--- OUTSIDE RECORDS SUMMARY | 2024-07-09 08:02 | XMS_ITS | Patient Health Summary ---
Author Organization [facility] [employer] Address [address] [place] [address] Care Team Providers Care Hull Molder Name Role Phone Ronan Roberto MD Unavailable Rad Jorge MD Primary Care Provider [phone] Note from [facility],non-owned Affiliates and Associated Physician Practices is amultiple site organization consisting of ambulatory clinics and hospital sitesin [place], [place], [place] and [place]. This disclosure is being madepursuant to the Care Everywhere program and may not contain all information available regarding this patient. Last updated 18.[facility] [employer] Allergies No known active allergies Medications * Be aware that medications may not be up to date on this document. Alwaysverify current medications with the patient. * escitalopram (LEXAPRO) 20 MG tablet Take 20 mg by mouth once daily * AMLODIPINE BESYLATE PO Take 5 mg by mouth * pravastatin (PRAVACHOL) 40 MG tablet Take 40 mg by mouth at bedtime * levETIRAcetam (KEPPRA) 500 MG tablet Take 500 mg by mouth 2 times daily * methylPREDNISolone (MEDROL DOSEPAK) 4 MG tablet(Started 03/06/2019) Take by mouth as directed 1 refill remaining Active Problems Problem Noted Date Diagnosed Date Bursitis of left shoulder 01/23/2017 Social History Tobacco Use Types Packs/Day Years Used Date Smoking Tobacco: Never Smokeless Tobacco: Never Sex and Gender Information Value Date Recorded Sex Assigned at Not on file Gender Identity Not on file Sexual Orientation Not on file Last Filed Vital Signs Vital Sign Reading Time Taken Comments Blood Pressure - - Pulse 68 10/23/2016 2:16 PM CDT Temperature - - Respiratory Rate - - Oxygen Saturation - - Inhaled Oxygen Concentration - - Weight 78 kg (172 lb) 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 Case Report Dermatopathology Report Case: [id number] Authorizing Provider: Fior Colmenares DO Collected: 09/06/2023 11:06 AM Ordering Location: [facility] - Received: 09/07/2023 09:26 AM DermPath Lab Pathologist: Sabra Brandon MD Specimen: Skin, left frontal scalp 2:39 PM CDT DERMATOPATHOLOGY LABORATORY Final Diagnosis Specimen A. SKIN, left frontal scalp: INTRADERMAL MELANOCYTIC NEVUS (D22.4) 2:39 PM CDT DERMATOPATHOLOGY LABORATORY Clinical History IDN vs. BCC 2:39 PM CDT DERMATOPATHOLOGY LABORATORY Gross Description Specimen A: Received is one formalin filled container labeled with the patient's name and designated left frontal scalp. The specimen consists of a shave biopsy measuring 4x3x1 mm. Jar 0. 2:39 PM CDT DERMATOPATHOLOGY LABORATORY Microscopic Description Specimen A. SKIN, left frontal scalp: There are nests of cytologically bland melanocytes within the dermis that mature with depth. 2:39 PM CDT DERMATOPATHOLOGY LABORATORY Disclaimer An external and internal positive and negative controls are appropriate for the histochemical, immunohistochemical and immunofluorescence stain(s) in this case (if any), except where stated explicitly. The performance characteristics of the stain(s) cited in this report were developed and its performance characteristic determined by the Dermatopathology Laboratory at [facility], directed by Dr. Jose Roberto Thornton. These tests need not be, and therefore are not, approved by the [place] Food and Drug Administration. The tests are used for clinical purposes. Billing Codes Specimen Charges Stain Charges 98163 1 4 2:39 PM CDT DERMATOPATHOLOGY LABORATORY Embedded Images 4 2:39 PM CDT DERMATOPATHOLOGY LABORATORY Pathology/Cytolo gy TISSUE SPECIMEN FROM SKIN / Unknown 09/06/2023 11:06 AM CDT 09/07/2023 9:26 AM CDT Fior Colmenares DO LAB - PATHOLOGY/C YTOLOGY ORDERABLES DERMATOPATHOLOGY LABORATORY [facility] - Department of Dermatology [address] [phone] * XR SHOULDER LEFT 2VW OR MORE (03/06/2019 1:17 PM CDT) Only the most recent of2 resultswithin the time period is included. Anatomical Region Laterality Modality Upper Extremity Radiographic Drea ging Narrative 03/06/2019 1:19 PM CDT Concetta Garcia, RT 03/08/2019 5:35 PM Please see progress note in Epic for results. Dylan Donald MD DIAGNOSTIC IMAGING O RDERABLES Care Teams Hull Molder Relationship Specialty Start Date End Date Rad Jorge MD PCP - General Family Medicine 03/06/19 Ronan Roberto MD Orthopedist Orthopedic Surgery 10/23/16
--- OUTSIDE RECORDS SUMMARY | 2024-07-09 08:02 | XMS_ITS | Clinical Summary ---
Author Organization [facility] [employer] Address [address] [place] [address] Care Team Providers Care Special Population Paraprofessional Name Role Phone Ronan Roberto MD Unavailable [phone] Rad Jorge MD Primary Care Provider [phone] Source Comments [facility],non-owned Affiliates and Associated Physician Practices is amultiple site organization consisting of ambulatory clinics and hospital sitesin [place], [place], [place]. This disclosure is being madepursuant to the Care Everywhere program and may not contain all information available regarding this patient. Last updated 18.[facility] [employer] Allergies No known active allergies Medications * Be aware that medications may not be up to date on this document. Alwaysverify current medications with the patient. 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 Height 157.5 cm (5' 2 ) 04/03/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 Body Mass Index 31.46 04/03/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 Plan of Treatment Health Maintenance Due Date Last Done Comments BONE DENSITY TESTING 1945 MEDICARE AWV 12 MONTHS 1945 DTAP/TDAP/TD VACCINES (1 - Tdap) 08/08/1963 PNEUMOCOCCAL VACCINE 50+ (1 of 1 - PCV) 1994 ZOSTER VACCINE (1 of 2) 1994 Respiratory Syncytial Virus (RSV) Vaccine Pt: or over 60 yrs (1 - 1-dose 75+ series) 08/08/2019 COVID-19 VACCINE ( - 2023-2 5 season) 2024 INFLUENZA VACCINE (#1) 2024 01/12/2017 DEPRESSION SCREENING 05/14/2024 HEPATITIS B VACCINE Aged Out No longe r eligible based on patient's age to complete this topic HIB VACCINE Aged Out No longer eligi ble based on patient's age to complete this topic HPV VACCINE Aged Out No longer eligi ble based on patient's age to complete this topic MENINGOCOCCAL (Group B) VACCINE Aged Out No longer eligible based on patient's age to complete this topic MENINGOCOCCAL VACCINE Aged Out No shane aly eligible based on patient's age to complete this topic Care Teams Special Population Paraprofessional Relationship Specialty Start Date End Date Rad Jorge MD PCP - General Family Medicine 03/06/19 Ronan Roberto MD Orthopedist Orthopedic Surgery 10/23/16
--- OUTSIDE RECORDS SUMMARY | 2024-07-09 08:02 | XMS_ITS | Referral Summary ---
Author Organization [facility] [employer] Address [address] [place] [address] Care Team Providers Care Corporate Job Titles Name Role Phone Ronan Roberto MD Unavailable [phone] Rad Jorge MD Primary Care Provider [phone] Source Comments [facility],non-owned Affiliates and Associated Physician Practices is amultiple site organization consisting of ambulatory clinics and hospital sitesin [place], [place], [place] and [place]. This disclosure is being madepursuant to the Care Everywhere program and may not contain all information available regarding this patient. 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
--- OUTSIDE RECORDS SUMMARY | 2024-07-09 08:03 | XMS_ITS | CONTINUITY OF CARE DOCUMENT ---
Author Name [employer] Address Unknown Organization [facility] Address [address] [place] [address] Phone [phone] Care Team Providers Care Ticket Speculator Name Role Phone Bryce BASURTO, Luis A Unavailable [phone] LUDIN WAGONER Unavailable Unavailable INSURANCE PROVIDERS Payer name Policy type / Coverage type Sharmila red democrat ID [facility] [id number] [place] [employer] Medicare [id number]
--- OUTSIDE RECORDS SUMMARY | 2024-07-09 08:03 | XMS_ITS | Encounter Summary ---
Author Organization [facility] Address [address] [place] [address] Care Team Providers Care Photographic Printer Name Role Phone Ronan Roberto MD Unavailable [phone] Rad Jorge MD Primary Care Provider [phone] Encounter Details Date Type Department Care Team (Late st Contact Info) Description 06/13/2019 Lab Requisition [facility] DermPath Lab [address] [place] [address] Fior Colmenares DO [address] [facility] [place] [address] Social History Tobacco Use Types Packs/Day Years Used Date Smoking Tobacco: Never Smokeless Tobacco: Never Sex and Gender Information Value Date Recorded Sex Assigned at Not on file Gender Identity Not on file Sexual Orientation Not on file documented as of this encounter Plan of Treatment Not on file documented as of this encounter Procedures Procedure Name Priority Date/Time Associated Diagnosis Comments DERMATOPATHOLOGY Routine 06/12/2019 12:0 0 AM SHEARER PRINTED [employer] BOARDS documented in this encounter Results * DERMATOPATHOLOGY (06/12/2019 12:00 AM [employer] BOARDS) Case Report Dermatopathology Report Case: [id number] Authorizing Provider: Fior Colmenares DO Collected: 06/12/2019 12:00 AM Ordering Location: [facility] DermPath Lab Received: 06/13/2019 06:46 AM Pathologist: Sabra Brandon MD Specimen: Skin, left nasal facial sulcus 0 11:40 AM [employer] DERMATOPATHOLOGY LABORATORY Final Diagnosis Specimen A. SKIN, left nasal facial sulcus: BASAL CELL CARCINOMA (C44.311) (see microscopic description and comment) 0 11:40 AM [facility] DERMATOPATHOLOGY LABORATORY Clinical History R/O BCC. 0 11:40 AM [facility] DERMATOPATHOLOGY LABORATORY Gross Description Specimen A: Received is one formalin filled container labeled with the patient's name and designated left nasal facial sulcus. The specimen consists of a shave measuring [id number]. Jar 0. 0 11:40 AM [facility] DERMATOPATHOLOGY LABORATORY Microscopic Description Specimen A. SKIN, left nasal facial sulcus: The specimen consists of aggregates of basaloid cells, located within the superficial dermis, with high nuclear to cytoplasmic ratio and peripheral palisading. COMMENT: The small size of the specimen limits subtyping of the lesion. 0 11:40 AM [facility] DERMATOPATHOLOGY LABORATORY Disclaimer An external and internal positive and negative controls are appropriate for the histochemical, immunohistochemical and immunofluorescence stain(s) in this case (if any), except where stated explicitly. The performance characteristics of the stain(s) cited in this report were developed and its performance characteristic determined by the Dermatopathology Laboratory at [facility], directed by Dr. Jose Roberto Thornton. These tests need not be, and therefore are not, approved by the [place] Food and Drug Administration. The tests are used for clinical purposes. Billing Codes Specimen Charges Stain Charges 99765 1 0 11:40 AM [facility] DERMATOPATHOLOGY LABORATORY Embedded Images 0 11:40 AM [facility] DERMATOPATHOLOGY LABORATORY Pathology/Cytolog y TISSUE SPECIMEN FROM SKIN / Unknown 06/12/2019 06/13/2019 6:46 AM [employer] Fior Colmenares DO LAB - PATHOLOGY/C YTOLOGY ORDERABLES DERMATOPATHOLOGY LABORATORY [facility] - Department of Dermatology [address] [place] [address], [address] [place] [address], [facility] [phone] documented in this encounter Visit Diagnoses Not on filedocumented in this encounter Care Teams Photographic Printer Relationship Specialty Start Date End Date Rad Jorge MD PCP - General Family Medicine 03/06/19 Ronan Roberto MD Orthopedist Orthopedic Surgery 10/23/16 documented as of this encounter
--- OUTSIDE RECORDS SUMMARY | 2024-07-09 08:03 | XMS_ITS | Encounter Summary ---
Author Organization [facility] Address [address] [place] [address] Care Team Providers Care Pool Table Mechanic Name Role Phone Rad Jorge MD Primary Care Provider + Rad Jorge MD Unavailable [phone] Encounter Details Date Type Department Care Team (Late st Contact Info) Description 03/15/2018 Abstract [facility] Family and Sports Medicine - [place] [address] [place] [address] Rad Jorge MD [address] [place] [address] Social History Tobacco Use Types Packs/Day Years Used Date Smoking Tobacco: Never Assessed Comments Unknown Sex and Gender Information Value Date Recorded Sex Assigned at Not on file Legal Sex Female 8:04 PM CDT Gender Identity Not on file Sexual Orientation Not on file documented as of this encounter Progress Notes * Sabra Fabian MA - 03/15/2018 11:27 AM CDT This chart is being abstracted by prep laquita for the med group go [facility] -Sabra Fabian CMA documented in this encounter Plan of Treatment Not on file documented as of this encounter Visit Diagnoses Not on filedocumented in this encounter Additional Health Concerns Assessment Noted Time PHQ-9 Depression Total Score: 7 03/12/20 18 11:39 AM CDT documented as of this encounter Care Teams Pool Table Mechanic Relationship Specialty Start Date End Date Rad Jorge MD [address] [place] [address] PCP - General 05/11/15 Rad Jorge MD [address] [place] [address] PCP - Med Group - [facility] Attributed Provider 05/14/15 05/13/22 documented as of this encounter
--- OUTSIDE RECORDS SUMMARY | 2024-07-09 08:03 | XMS_ITS | Encounter Summary ---
Author Organization [facility] Address [address] [place] [address] Care Team Providers Care Water Analyst Name Role Phone Ronan Roberto MD Unavailable [phone] Rad Jorge MD Primary Care Provider [phone] Encounter Details Date Type Department Care Team (Late st Contact Info) Description 09/06/2023 Lab Requisition [facility] - DermPath Lab [address] [facility], [place] [address] Fior Colmenares DO [address] [facility] [address] [place] [address] Social History Tobacco Use Types Packs/Day Years [...] Priority Date/Time Associated Diagnosis Comments DERMATOPATHOLOGY Routine 09/06/2023 11:0 6 AM CDT documented in this encounter Results * DERMATOPATHOLOGY (09/06/2023 11:06 AM CDT) Case Report Dermatopathology Report Case: [id number] Authorizing Provider: Fior Colmenares DO Collected: 09/06/2023 11:06 AM Ordering Location: [facility] Physician [facility] - Received: 09/07/2023 09:26 AM DermPath Lab Pathologist: Sabra Brandon MD Specimen: Skin, left frontal scalp 4 2:39 PM CDT DERMATOPATHOLOGY LABORATORY Final Diagnosis Specimen A. SKIN, left frontal scalp: INTRADERMAL MELANOCYTIC NEVUS (D22.4) 4 2:39 PM CDT DERMATOPATHOLOGY LABORATORY Clinical History IDN vs. BCC 4 2:39 PM CDT DERMATOPATHOLOGY LABORATORY Gross Description Specimen A: Received is one formalin filled container labeled with the patient's name and designated left frontal scalp. The specimen consists of a shave biopsy measuring 4x3x1 mm. Jar 0. 4 2:39 PM CDT DERMATOPATHOLOGY LABORATORY Microscopic Description Specimen A. SKIN, left frontal scalp: There are nests of cytologically bland melanocytes within the dermis that mature with depth. 4 2:39 PM CDT DERMATOPATHOLOGY LABORATORY Disclaimer An external and internal positive and negative controls are appropriate for the histochemical, immunohistochemical and immunofluorescence stain(s) in this case (if any), except where stated explicitly. The performance characteristics of the stain(s) cited in this report were developed and its performance characteristic determined by the Dermatopathology Laboratory at [facility], directed by Dr. Jose Roberto Thornton. These tests need not be, and therefore are not, approved by the [place] Food and Drug Administration. The tests are used for clinical purposes. Billing Codes Specimen Charges Stain Charges 59978 1 4 2:39 PM CDT DERMATOPATHOLOGY LABORATORY Embedded Images 2:39 PM CDT DERMATOPATHOLOGY LABORATORY Pathology/Cytolo gy TISSUE SPECIMEN FROM SKIN / Unknown 09/06/2023 11:06 AM CDT 09/07/2023 9:26 AM CDT Fior Colmenares DO LAB - PATHOLOGY/C YTOLOGY ORDERABLES DERMATOPATHOLOGY LABORATORY [facility] - Department of Dermatology [facility] [address] [place] [address], [address] [phone] documented in this encounter Visit Diagnoses Not on filedocumented in this encounter Care Teams Water Analyst Relationship Specialty Start Date End Date Rad Jorge MD PCP - General Family Medicine 03/06/19 Ronan Roberto MD Orthopedist Orthopedic Surgery 10/23/16 documented as of this encounter
--- OUTSIDE RECORDS SUMMARY | 2024-07-09 08:03 | XMS_ITS | Clinical Summary ---
Author Organization [facility] Address [facility] [place] [address] Care Team Providers Care Junk Dealer Name Role Phone Rad Jorge MD Primary Care Provider [phone] Allergies No known active allergies Medications ARIPiprazole (ABILIFY) 5 MG tabletIndication s:Anxiety Take 1 tablet (5 mg total) by mouth daily. 30 tablet 11 07/02/2023 Active escitalopram (LEXAPRO) 20 MG tabletIndication s:Anxiety Take 1 tablet (20 mg total) by mouth daily. 90 tablet 03/27/2024 Active Hospital, Clinic, or Other Facility Administered Medication Ordered Dose Route Frequency Start Date End Date Status triamcinolone acetonide (KENALOG-40) injection 80 mgIndications:Subacromial bursitis of left shoulder joint 80 mg IX Once 06/20/2023 Active Active Problems Problem Noted Date Diagnosed Date Seasonal allergic rhinitis due to pollen 022 Acute non-recurrent frontal sinusitis 09/14/2020 Epigastric pain 05/05/2020 Anxiety 02/02/2020 Trigger finger of right thumb 01/13/2020 Hyperbilirubinemia 12/04/2017 Chronic fatigue 11/20/2017 Rash 11/20/2017 Seizures ([facility]) 07/05/2016 Dizziness 06/20/2016 Gastroesophageal reflux disease without esophagi tis 01/13/2016 Constipation 09/22/2015 Depression 08/13/2015 Transient ischemic attack, acute 08/13/2015 Impingement syndrome of left shoulder 05/18/2015 Acquired hypothyroidism 05/11/2015 Subacromial bursitis of left shoulder joint 04/14 Borderline hyperglycemia 04/27/2015 Pelvic pain in female 04/27/2015 UTI (urinary tract infection) 04/27/2015 Vitamin B12 deficiency 08/19/2014 Backache 07/31/2014 Trochanteric bursitis 07/31/2014 Resolved Problems Problem Noted Date Diagnosed Date Resolved Date Blood tests for routine gene ral physical examination 07/31/2014 01/23/2020 Encounter for preventive health examination 07/28/2014 01/23/2020 Immunizations Name Administration Dates Next Due Fluarix 04/10/2023 Fluzone High Dose - >Age 65 (Prefilled Syringe) 03/06/2022,01/13/2020,02/05/2018,2016 Influenza Adult (Generic) 01/12/2017 PFIZER COVID-19 (ORIGINAL FORMULATION, PURPLE CAP) mRNA, LNP-S, PF, 30 MCG/0.3 ML DOSE 09/13/2020,08/23/2020 Pneumococcal (Pneumovax 23) 01/13/2020 Pneumococcal (Prevnar 13) 02/05/2018 Family History Medical History Relation Comments Heart Disease Father Breast Cancer Maternal Aunt Breast Cancer Maternal Grandmother Breast Cancer Mother Breast Cancer Other 1 cousin/maternal Breast Cancer Other 2 Breast Cancer Paternal Grandmother Relation Status Comments Father Maternal Aunt Maternal Grandmother Mother Other 1 Other 2 Paternal Grandmother Social History Tobacco Use Types Packs/Day Years Used Date Smoking Tobacco: Never Smokeless Tobacco: Never Tobacco Cessation:Counseling Given: No Alcohol Use Standard Drinks/Week Comments Yes 0 (1 standard drink = 0.6 oz pur e alcohol) rarely AUDIT-C Answer Date Recorded Frequency of Alcohol Consumption Never 03/20/2018 Average Number of Drinks Not on file 018 Frequency of Binge Drinking Not on file 11/2017 PHQ-2 Answer Date Recorded PHQ-2 Score - If the patient scores above 3, please move on to questions 3-9 2 01/24/2021 Comments Unknown Sex and Gender Information Value Date Recorded Sex Assigned at Not on file Legal Sex Female 8:04 PM CDT Gender Identity Not on file Sexual Orientation Not on file Last Filed Vital Signs Vital Sign Reading Time Taken Comments Blood Pressure 130/80 06/20/2023 10:48 AM MATERIALS MANAGEMENT MANAGER Pulse 64 06/20/2023 10:48 AM MATERIALS MANAGEMENT MANAGER Temperature 36.7 C (98.1 F) 06/20/2023 10:48 AM MATERIALS MANAGEMENT MANAGER Respiratory Rate 16 06/20/2023 10:48 AM MATERIALS MANAGEMENT MANAGER Oxygen Saturation 98% 06/20/2023 10:48 AM MATERIALS MANAGEMENT MANAGER Inhaled Oxygen Concentration - - Weight 78.5 kg (173 lb) 06/20/2023 10:48 AM MATERIALS MANAGEMENT MANAGER Height 157.5 cm (5' 2 ) 06/20/2023 10:48 AM MATERIALS MANAGEMENT MANAGER Body Mass Index 31.64 06/20/2023 10:48 AM MATERIALS MANAGEMENT MANAGER Plan of Treatment Health Maintenance Due Date Last Done Comments ASCVD Statin 1944 PHQ-2 (Phys[facility] [place]) 1956 DTaP, Tdap and Td Vaccines (1 - Tdap) 08/08/1963 Zoster Vaccines (1 of 2) 1994 RSV Immunization or 60+ Years (1 - 1-dose 75+ series) 08/08/2019 ASCVD LDL 12/22/2021 12/22/2020, 12/13, 11/27/2017, Additional history exists Annual Medicare Wellness Visit 01/25/2022 01/24/2021 COVID-19 Vaccine ( season) 2024 03/14/2022, 09/13/2020, 08/23/2020 Influenza Adult (#1) 2024 04/10/2023, 03/06/2022, 01/13/2020, Additional history exists PHQ-2 ([facility] [place]) 05/14/2024 Hepatitis C 06/20/2053 Postponed from 1962 (Patient Refused) Pneumococcal Vaccine: 65+ Years Completed 01/13/2020, 02/05/2018 Dexa Scan (General) Completed 04/28/2021 Meningococcal B Vaccine Aged Out No l onger eligible based on patient's age to complete this topic Meningococcal Vaccine Aged Out No shane aly eligible based on patient's age to complete this topic RSV Immunizations Under 20 Months Aged Out No longer eligible based on patient's age to complete this topic Procedures Procedure Name Priority Date/Time Associated Diagnosis Comments BONE DENSITY GENERIC (SCAN ORDER) 04/28/2021 LIPID PANEL Routine 12/22/2020 11:04 AM CDT Annual physical exam from Last 3 Months or Most Recently Relevant to Health Maintenance Results * BONE DENSITY GENERIC (04/28/2021) Anatomical Region Laterality Modality Other 04/28/2021 Narrative 04/28/2021 Ordered by an unspecified provider. us Documents Scanned SCANNING Final Result * (ABNORMAL) LIPID PANEL (12/22/2020 11:04 AM CDT) CHOLESTEROL 252(H) <200 MG/DL 12/23/2020 12:35 AM CDT [facility] TRIGLYCERIDES 119 <150 MG/DL 12/23/2020 12:35 AM CDT [facility] HDL 59 >40 MG/DL 12/23/2020 12:35 AM CDT [facility] LDL-C 169(H) <100 MG/DL 12/23/2020 12:35 AM CDT [facility] VLDL CALCULATION 24 5 - 28 MG/DL 12/23/2020 12:35 AM CDT [facility] CHOL/HDL RATIO 4.3(H) 0.0 - 4.0 12/23/2020 12:35 AM CDT [facility] LDL/HDL 2.9(H) 0.41 - 2.13 12/23/2020 12:35 AM CDT [facility] NON HDL CHOLESTEROL 193(H) <140 MG/DL 12/23/2020 12:35 AM CDT [facility] 12/22/2020 11:0 4 AM CDT Rad Jorge MD LABORATORY Final Result [facility] [address] [place] [address], [place] [phone] from Last 3 Months or Most Recently Relevant to Health Maintenance Insurance MEDICARE [facility] Advance Directives Documents on File Type Date Recorded Patient Cutter Brake Lining Expl anation Advance Directives and Living Will 08/01/2021 8:36 AM 07/27/2021 HC POA Advance Directives and Living Will 08/01/2021 8:36 AM 07/13/2021 [place] Care Teams Junk Dealer Relationship Specialty Start Date End Date Rad Jorge MD [address] [address] PCP - General 05/11/15
[2024-07-09 08:25] LABS: Basophils Absolute Auto 0.1 K/mm3 (0.0-0.1); Basophils Percent Auto 1.5 % (0.2-1.2); Eosinophils Absolute Auto 0.3 K/mm3 (0-0.3); Eosinophils Percent Auto 5.8 % (0-4.4); Hematocrit 43.3 % (37.0-47.0); Hemoglobin 13.9 g/dL (12.0-15.0); Immature Granulocyte Absolute 0.01 K/mm3 (0.00-0.031); Immature Granulocyte Percent A 0.2 % (0-0.5); Lymphocytes Percent Auto 34.3 % (18.3-44.2); Mean Corpuscular HGB Conc 32.1 g/dl (32-36); Mean Corpuscular Volume 96.7 fl (80-100); Mean Platelet Volume 9.8 fl (7.4-10.4); Monocytes Absolute Auto 0.7 K/mm3 (0.1-0.6); Monocytes Percent Auto 11.8 % (2.6-8.5); Neutrophils Absolute Auto 2.7 K/mm3 (1.3-6.7); Neutrophils Percent Auto 46.4 % (45.5-73.1); Platelet Count Result 217 k/mm3 (150-375); Red Blood Count 4.48 M/mm3 (4.2-5.4); Red Cell Distribution Width 12.5 % (11.5-14.5); White Blood Count 5.8 K/mm3 (4.5-10.0)
[2024-07-09 08:36] LABS: Add Urine Microscopic? NO; Appearance Urine Clear (Clear); Bilirubin Urine Negative (Negative); Blood Urine Negative (Negative); Color Urine Yellow (Yellow); Glucose Urine UA Negative (Negative); Ketones Urine Negative (Negative); Leukocyte Esterase Ur Negative LEU/UL (Negative); Nitrate Urine Negative (Negative); Protein Urine Negative (Negative); Specific Grav Ur 1.021 (1.001-1.035); Urobilinogen Urine 0.2 mg/dL (<2.0)
[2024-07-09 08:38] LABS: Hemoglobin A1C 5.4 % (<5.7)
[2024-07-09 08:52] LABS: Alanine Aminotransferase 23 U/L (6-35); Albumin Level 4.1 g/dL (3.5-5.1); Alkaline Phosphatase 70 U/L (38-126); Anion Gap 8 mmol/L (4-12); Aspartate Amino Transferase 28 U/L (14-36); Bilirubin,Total 1.1 mg/dL (0.2-1.3); Blood Urea Nitrogen 20 mg/dL (7-17); Calcium 9.5 mg/dL (8.4-10.2); Carbon Dioxide 29 mmol/L (22-30); Chloride 104 mmol/L (98-107); Cholesterol 258 mg/dL (0-200); Estimated Glomerular Filt Rate > 60; Glucose 96 mg/dL (65-110); HDL Direct 70 mg/dL; Potassium 4.2 mmol/L (3.4-5.0); Sodium 141 mmol/L (137-145); Triglycerides 110 mg/dL (<150)
[2024-07-09 09:03] LABS: LDL Cholesterol Direct 126 mg/dL
[2024-07-09 10:11] LABS: Free T4 Free Thyroxine 0.86 ng/dL (0.78-2.19)
[2024-07-09 10:41] LABS: Vitamin D 25 Hydroxy < 12.8 ng/mL
[2024-07-10 08:04] LABS: C-Peptide 2.09 ng/mL (0.80-3.85)
[2024-07-10 11:49] LABS: Insulin Level Total 8.3 uIU/mL
== END 2024-07-09 07:51 | disposition home or self-care (01) ==
LOC: ANHLAB 07:57
PROVIDERS: PCP Internal Medicine; Visit Provider Internal Medicine
DX: E55.9 Vitamin D deficiency, unspecified (principal); Z79.899 Other long term (current) drug therapy; Z83.3 Family history of diabetes mellitus; Z13.220 Encounter for screening for lipoid disorders; Z13.1 Encounter for screening for diabetes mellitus; Z13.29 Encounter for screening for other suspected endocrine disorder
CPT/HCPCS: 36415; 80053; 80061; 81003; 82306; 83036; 83525; 84439; 84443; 84681; 85025

== ENCOUNTER 2024-07-20 13:27 | Outpatient (CLI) | payer MEDICARE, SELFPAY ==
--- NOTE | ~2024-07-20 | MR_ITS ---
EXAMINATION: MR brain IAC wo/w con DATE: 07/20/2024 14:56 INDICATION: Dizziness. TECHNIQUE: Magnetic resonance imaging (MRI) of the brain, brainstem, and internal auditory canals was performed without and with 14 mL ProHance intravenous contrast. COMPARISON: Brain MRI 10/27/2022, head CT 12/07/2021 FINDINGS: There are scattered areas of nonspecific increased T2-weighted signal intensity in the cere bral white matter, which is within normal limits for the patient's age. There is no intracranial hemo rrhage, acute infarction, or abnormal intracranial mass lesion. The ventricles are normal in size. Th e paranasal sinuses are clear. The orbits are normal. There is a trace right mastoid effusion. The in ternal auditory canals and inner ears and tympanic cavities are normal. IMPRESSION: 1. Normal aging brain. Reviewed, dictated and finalized at location B. IMPRESSION: 1. Normal aging brain.
--- OUTSIDE RECORDS SUMMARY | 2024-07-20 13:31 | XMS_ITS | Patient Health Summary ---
Author Organization [facility] Address [address] [address] Care Team Providers Care Powerhouse Tender Name Role Phone Ronan Roberto MD Unavailable [phone] Rad Jorge MD Primary Care Provider [phone] Note from [facility],non-owned Affiliates and Associated Physician Practices is amultiple site organization consisting of ambulatory clinics and hospital sitesin [place], [place]. This disclosure is being madepursuant to the Care Everywhere program and may not contain all information available regarding this patient. Last updated 18.[facility] Allergies No known active allergies Medications * [...] 78 kg (172 lb) 04/03/2019 10:27 AM STRIPPING MACHINE OPERATOR Height 157.5 cm (5' 2 ) 04/03/2019 10:27 AM STRIPPING MACHINE OPERATOR Body Mass Index 31.46 04/03/2019 10:27 AM STRIPPING MACHINE OPERATOR Procedures * DERMATOPATHOLOGY(Performed 09/06/2023) * DERMATOPATHOLOGY(Performed 08/22/2022) * DERMATOPATHOLOGY(Performed 06/12/2019) * XR SHOULDER LEFT 2VW OR MORE(Performed 03/06/2019) Performed for Chronic left shoulder pain * XR SHOULDER LEFT 2VW OR MORE(Performed 10/23/2016) Performed for Left shoulder pain, unspecified chronicity Results * DERMATOPATHOLOGY (09/06/2023 11:06 AM CDT) Only the most recent of3 resultswithin the time period is included. Case Report Dermatopathology Report Case: [id number] Authorizing Provider: Fior Colmenares DO Collected: 09/06/2023 11:06 AM Ordering Location: [facility] Group - Received: 09/07/2023 [...] characteristic determined by the Dermatopathology Laboratory at [facility], directed by Dr. Jose Roberto Thornton. These tests need not be, and therefore are not, approved by the [place] Food and Drug Administration. The tests are used for clinical purposes. Billing Codes Specimen Charges Stain Charges [id number] 1 4 2:39 PM CDT DERMATOPATHOLOGY LABORATORY Embedded Images 4 2:39 PM CDT DERMATOPATHOLOGY LABORATORY Pathology/Cytolo gy TISSUE SPECIMEN FROM SKIN / Unknown 09/06/2023 11:06 AM CDT 09/07/2023 9:26 AM CDT Fior Colmenares DO LAB - PATHOLOGY/C YTOLOGY ORDERABLES DERMATOPATHOLOGY LABORATORY [facility] - Department of Dermatology [address], [address] [phone] * XR SHOULDER LEFT 2VW OR MORE (03/06/2019 1:17 PM CDT) Only the most recent of2 resultswithin the time period is included. Anatomical Region Laterality Modality Upper Extremity Radiographic Drea ging Narrative 03/06/2019 1:19 PM CDT Concetta Garcia, RT 03/08/2019 5:35 PM Please see progress note in Epic for results. Dylan Donald MD DIAGNOSTIC IMAGING O RDERABLES Care Teams Powerhouse Tender Relationship Specialty Start Date End Date Rad Jorge MD PCP - General Family Medicine 03/06/19 Ronan Roberto MD Orthopedist Orthopedic Surgery 10/23/16
--- OUTSIDE RECORDS SUMMARY | 2024-07-20 13:31 | XMS_ITS | Encounter Summary ---
Author Organization [facility] Address [facility] [place] [address] Care Team Providers Care Social Economist Name Role Phone Rad Jorge MD Primary Care Provider + Rad Jorge MD Unavailable [phone] Encounter Details Date Type Department Care Team (Late st Contact Info) Description 03/15/2018 Abstract [facility] Family and Sports Medicine - [place] [address] [place] [address] Rad Jorge MD [address] [place] [address] Social History Tobacco Use Types Packs/Day Years [...] prep laquita for the med group go [facility] -Sabra Fabian CMA documented in this encounter Plan of Treatment Not on file documented as of this encounter Visit Diagnoses Not on filedocumented in this encounter Additional Health Concerns Assessment Noted Time PHQ-9 Depression Total Score: 7 03/12/20 18 11:39 AM CDT documented as of this encounter Care Teams Social Economist Relationship Specialty Start Date End Date Rad Jorge MD [address] [place] [address] PCP - General 05/11/15 Rad Jorge MD [address] [place] [address] PCP - Med Group - [facility] Attributed Provider 05/14/15 05/13/22 documented as of this encounter
--- OUTSIDE RECORDS SUMMARY | 2024-07-20 13:31 | XMS_ITS | Encounter Summary ---
Author Organization [facility] Address [address] [place] [address] Care Team Providers Care Master Yacht Name Role Phone Ronan Roberto MD Unavailable [phone] Rad Jorge MD Primary Care Provider [phone] Encounter Details Date Type Department Care Team (Late st Contact Info) Description 09/06/2023 Lab Requisition [facility] - DermPath Lab [address] [facility], [place] [address] Fior Colmenares DO [address] [facility] [address] [place] [address] Social History Tobacco Use Types Packs/Day Years [...] AM CDT) Case Report Dermatopathology Report Case: [id number] Authorizing Provider: Fior Colmenares DO Collected: 09/06/2023 11:06 AM Ordering Location: [facility] Physician [facility] - Received: 09/07/2023 09:26 AM DermPath Lab [...] characteristic determined by the Dermatopathology Laboratory at [facility], directed by Dr. Jose Roberto Thornton. These tests need not be, and therefore are not, approved by the [place] Food and Drug Administration. The tests are used for clinical purposes. Billing Codes Specimen Charges Stain Charges 44476 1 4 2:39 PM CDT DERMATOPATHOLOGY LABORATORY Embedded Images 2:39 PM CDT DERMATOPATHOLOGY LABORATORY Pathology/Cytolo gy TISSUE SPECIMEN FROM SKIN / Unknown 09/06/2023 11:06 AM CDT 09/07/2023 9:26 AM CDT Fior Colmenares DO LAB - PATHOLOGY/C YTOLOGY ORDERABLES DERMATOPATHOLOGY LABORATORY [facility] - Department of Dermatology [facility] Medicine [address] [place] [address], [address]rd Floor [address] [phone] documented in this encounter Visit Diagnoses Not on filedocumented in this encounter Care Teams Master Yacht Relationship Specialty Start Date End Date Rad Jorge MD PCP - General Family Medicine 03/06/19 Ronan Roberto MD Orthopedist Orthopedic Surgery 10/23/16 documented as of this encounter
--- OUTSIDE RECORDS SUMMARY | 2024-07-20 13:31 | XMS_ITS | Encounter Summary ---
Author Organization [facility] Address [address] [place] [address] Care Team Providers Care Robotics Application Engineer Name Role Phone Ronan Roberto MD Unavailable [phone] Rad Jorge MD Primary Care Provider [phone] Encounter Details Date Type Department Care Team (Late st Contact Info) Description 06/13/2019 Lab Requisition [facility] DermPath Lab [address] [facility] [place] [address] Fior Colmenares DO [address] [facility] [address] [place] [address] Social History Tobacco Use Types Packs/Day Years [...] Comments DERMATOPATHOLOGY Routine 06/12/2019 12:0 0 AM LOOM CHANGEOVER OPERATOR documented in this encounter Results * DERMATOPATHOLOGY (06/12/2019 12:00 AM LOOM CHANGEOVER OPERATOR) Case Report Dermatopathology Report Case: [id number] Authorizing Provider: Fior Colmenares DO Collected: 06/12/2019 12:00 AM Ordering Location: [facility] DermPath Lab Received: 06/13/2019 06:46 AM Pathologist: Sabra Brandon MD Specimen: Skin, left nasal facial sulcus 0 11:40 AM LOOM CHANGEOVER OPERATOR DERMATOPATHOLOGY LABORATORY Final Diagnosis Specimen A. SKIN, left nasal facial sulcus: BASAL CELL CARCINOMA (C44.311) (see microscopic description and comment) 0 11:40 AM [facility] DERMATOPATHOLOGY LABORATORY Clinical History R/O BCC. 0 11:40 AM [facility] DERMATOPATHOLOGY LABORATORY Gross Description Specimen A: Received is one formalin filled container labeled with the patient's name and designated left nasal facial sulcus. The specimen consists of a shave measuring 2x2z7gb. Jar 0. 0 11:40 AM [facility] DERMATOPATHOLOGY LABORATORY Microscopic Description Specimen A. SKIN, left nasal facial sulcus: The specimen consists of aggregates of basaloid cells, located within the superficial dermis, with high nuclear to cytoplasmic ratio and peripheral palisading. COMMENT: The small size of the specimen limits subtyping of the lesion. 0 11:40 AM [facility] DERMATOPATHOLOGY LABORATORY Disclaimer An external and internal positive and negative controls are appropriate for the histochemical, immunohistochemical and immunofluorescence stain(s) in this case (if any), except where stated explicitly. The performance characteristics of the stain(s) cited in this report were developed and its performance characteristic determined by the Dermatopathology Laboratory at [facility], directed by Dr. Jose Roberto Thornton. These tests need not be, and therefore are not, approved by the [place] Food and Drug Administration. The tests are used for clinical purposes. Billing Codes Specimen Charges Stain Charges 92176 1 0 11:40 AM [facility] DERMATOPATHOLOGY LABORATORY Embedded Images 0 11:40 AM [facility] DERMATOPATHOLOGY LABORATORY Pathology/Cytolog y TISSUE SPECIMEN FROM SKIN / Unknown 06/12/2019 06/13/2019 6:46 AM LOOM CHANGEOVER OPERATOR Fior Colmenares DO LAB - PATHOLOGY/C YTOLOGY ORDERABLES DERMATOPATHOLOGY LABORATORY [facility] - Department of Dermatology [address] [place] [address], 5th [place] [address], [facility] [phone] documented in this encounter Visit Diagnoses Not on filedocumented in this encounter Care Teams Robotics Application Engineer Relationship Specialty Start Date End Date Rad Jorge MD PCP - General Family Medicine 03/06/19 Ronan Roberto MD Orthopedist Orthopedic Surgery 10/23/16 documented as of this encounter
--- OUTSIDE RECORDS SUMMARY | 2024-07-20 13:31 | XMS_ITS | Clinical Summary ---
Author Organization [facility] Address [address] [facility] [place] [address] Care Team Providers Care Necktie Stitcher Name Role Phone Ronan Roberto MD Unavailable [phone] Rad Jorge MD Primary Care Provider [phone] Source Comments [facility],non-owned Affiliates and Associated Physician Practices is amultiple site organization consisting of ambulatory clinics and hospital sitesin [place], [place], [place] and [place]. This disclosure is being madepursuant to the Care Everywhere program and may not contain all information available regarding this patient. Last updated 18.[facility] Allergies No known active allergies Medications * [...] 78 kg (172 lb) 04/03/2019 10:27 AM ROLLING MACHINE TENDER Height 157.5 cm (5' 2 ) 04/03/2019 10:27 AM ROLLING MACHINE TENDER Body Mass Index 31.46 04/03/2019 10:27 AM ROLLING MACHINE TENDER Plan of Treatment Health Maintenance Due Date [...] age to complete this topic Care Teams Necktie Stitcher Relationship Specialty Start Date End Date Rad Jorge MD PCP - General Family Medicine 03/06/19 Ronan Roberto MD Orthopedist Orthopedic Surgery 10/23/16
--- OUTSIDE RECORDS SUMMARY | 2024-07-20 13:31 | XMS_ITS | Referral Summary ---
Author Organization [facility] [employer] Address [address] [place] [address] Care Team Providers Care Manager Machine Name Role Phone Ronan Roberto MD Unavailable [phone] Rad Jorge MD Primary Care Provider [phone] Source Comments [facility],non-owned Affiliates and Associated Physician Practices is amultiple site organization consisting of ambulatory clinics and hospital sitesin [place], [place], [place] and [place]. This disclosure is being madepursuant to the Care Everywhere program and may not contain all information available regarding this patient. Last updated 18.[facility] [employer] Allergies No known active allergies Medications * [...] 78 kg (172 lb) 04/03/2019 10:27 AM COPYRIGHT MANAGER Height 157.5 cm (5' 2 ) 04/03/2019 10:27 AM COPYRIGHT MANAGER Body Mass Index 31.46 04/03/2019 10:27 AM COPYRIGHT MANAGER Plan of Treatment Not on file Administered Medications Care Teams Manager Machine Relationship Specialty Start Date End Date Rad Jorge MD PCP - General Family Medicine 03/06/19 Ronan Roberto MD Orthopedist Orthopedic Surgery 10/23/16
--- OUTSIDE RECORDS SUMMARY | 2024-07-20 13:31 | XMS_ITS | CONTINUITY OF CARE DOCUMENT ---
Author Name will solis Address Unknown Organization [facility] Address [address] [facility] [address] [place] [address] Phone [phone] Care Team Providers Care Library Science Professor Name Role Phone Bryce BASURTO, Luis A Unavailable LUDIN WAGONER Unavailable Unavailable INSURANCE PROVIDERS Payer name Policy type / Coverage type Sharmila red alliance party ID [facility] [id number] [place] [employer] Medicare [id number]
--- OUTSIDE RECORDS SUMMARY | 2024-07-20 13:31 | XMS_ITS | Clinical Summary ---
Author Organization [facility] Address Formerly [facility], later [facility] [place] [address] Care Team Providers Care Tape Maker Name Role Phone Rad Jorge MD Primary Care Provider [phone] Allergies No known active allergies Medications ARIPiprazole [...] 12/04/2017 Chronic fatigue 11/20/2017 Rash 11/20/2017 Seizures ([facility]) 07/05/2016 Dizziness 06/20/2016 Gastroesophageal reflux disease without [...] Comments Blood Pressure 130/80 06/20/2023 10:48 AM KNIFE SHARPENER Pulse 64 06/20/2023 10:48 AM KNIFE SHARPENER Temperature 36.7 C (98.1 F) 06/20/2023 10:48 AM KNIFE SHARPENER Respiratory Rate 16 06/20/2023 10:48 AM KNIFE SHARPENER Oxygen Saturation 98% 06/20/2023 10:48 AM KNIFE SHARPENER Inhaled Oxygen Concentration - - Weight 78.5 kg (173 lb) 06/20/2023 10:48 AM KNIFE SHARPENER Height 157.5 cm (5' 2 ) 06/20/2023 10:48 AM KNIFE SHARPENER Body Mass Index 31.64 06/20/2023 10:48 AM KNIFE SHARPENER Plan of Treatment Health Maintenance Due Date Last Done Comments ASCVD Statin 1945 PHQ-2 (Physician [place]) 1957 DTaP, Tdap and Td Vaccines (1 - Tdap) 08/08/1963 Zoster Vaccines (1 of 2) 1994 RSV Immunization or 60+ Years (1 - 1-dose 75+ series) 08/08/2019 ASCVD LDL 12/22/2021 12/22/2020, 12/13, 11/27/2017, Additional history exists Annual Medicare Wellness Visit 01/25/2022 01/24/2021 COVID-19 Vaccine ( season) 2024 03/14/2022, 09/13/2020, 08/23/2020 Influenza Adult (#1) 2024 04/10/2023, 03/06/2022, 01/13/2020, Additional history exists PHQ-2 (Physician [place]) 05/14/2024 Hepatitis C 06/20/2053 Postponed from 1962 [...] 252(H) <200 MG/DL 12/23/2020 12:35 AM CDT [facility] TRIGLYCERIDES 119 <150 MG/DL 12/23/2020 12:35 AM CDT [facility] HDL 59 >40 MG/DL 12/23/2020 12:35 AM CDT [facility] LDL-C 169(H) <100 MG/DL 12/23/2020 12:35 AM CDT [facility] VLDL CALCULATION 24 5 - 28 MG/DL 12/23/2020 12:35 AM CDT [facility] CHOL/HDL RATIO 4.3(H) 0.0 - 4.0 12/23/2020 12:35 AM CDT [facility] LDL/HDL 2.9(H) 0.41 - 2.13 12/23/2020 12:35 AM CDT [facility] NON HDL CHOLESTEROL 193(H) <140 MG/DL 12/23/2020 12:35 AM CDT [facility] 12/22/2020 11:0 4 AM CDT Rad Jorge MD LABORATORY Final Result [facility] [address] [place] [address], [place] [phone] from Last 3 Months or Most Recently Relevant to Health Maintenance Insurance MEDICARE [facility] Advance Directives Documents on File Type Date Recorded Patient Tight Barrel Inspector Expl anation Advance Directives and Living Will 08/01/2021 8:36 AM 07/27/2021 HC POA Advance Directives and Living Will 08/01/2021 8:36 AM 07/13/2021 [place]IV[place] Care Teams Tape Maker Relationship Specialty Start Date End Date Rad Jorge MD [address] [address] PCP - General 05/11/15
== END 2024-07-20 13:28 | disposition home or self-care (01) ==
PROVIDERS: PCP Internal Medicine; Visit Provider Internal Medicine
DX: R42 Dizziness and giddiness (principal); Z87.898 Personal history of other specified conditions
CPT/HCPCS: 70553; A9579

== ENCOUNTER 2024-07-30 14:21 | Outpatient (CLI) | payer MEDICARE, SELFPAY ==
--- NOTE | 2024-07-30 14:24 | ECHO_ITS ---
Patient Info Name: Malathi Humphries Age: 78 years : 1945 Gender: Female HR: 73 bpm BP: 146 / 73 mmHg Technical Quality: Good Exam Date: 07/30/2024 2:38 PM Exam Location: Echo Lab Patient Status: Outpatient Admit Date: 07/30/2024 Staff Ordering Physician: Jose Gonzalez MD [id number] Administrator: Brigitte Solorio RDCS Attending Provider: Jose Gonzalez MD Referring Physician: Carlos DERAS; Exam Type: CA echo doppler color flow Study Info Indications R42 - Dizziness and giddiness Complete two-dimensional, color flow and Doppler transthoracic echocardiogram is performed. Summary 1. Complete two-dimensional, color flow and Doppler transthoracic echocardiogram is performed. 2. Left ventricular chamber dimension is normal. 3. Left ventricular systolic function is normal, estimated at 60-65%. 4. The left ventricular diastolic function is abnormal. 5. E/e' 12 is mildly elevated. 6. Left atrial chamber dimension is mildly enlarged. 7. There is moderate aortic valve sclerosis. 8. There is moderate aortic valve stenosis with a peak velocity of 212 cm/s, mean gradient of 11 mmHg, and aortic valve area of 1.2 cm2. 9. The mitral valve has moderately calcified annulus. 10. There is mild tricuspid valve regurgitation. 11. No pulmonary hypertension, estimated pulmonary arterial systolic pressure is 29 mmHg. Left Ventricle E/e' 12 is mildly elevated. Left ventricular chamber dimension is normal. Left ventricular systolic function is normal, estimated at 60-65%. The left ventricular diastolic function is abnormal. Right Ventricle Right ventricular systolic function is normal and with normal TAPSE 1.8 cm. Right ventricular chamber dimension is normal. Left Atria Left atrial chamber dimension is mildly enlarged. Right Atria Right atrial chamber dimension is normal. Aortic Valve The aortic valve is trileaflet. There is moderate aortic valve sclerosis. There is moderate aortic valve stenosis with a peak velocity of 212 cm/s, mean gradient of 11 mmHg, and aortic valve area of 1.2 cm2. There is no aortic valve regurgitation. Pulmonic Valve There is no pulmonic regurgitation. Mitral Valve The mitral valve has moderately calcified annulus. There is no mitral valve stenosis. There is no mitral valve regurgitation. Tricuspid Valve There is mild tricuspid valve regurgitation. No pulmonary hypertension, estimated pulmonary arterial systolic pressure is 29 mmHg. Pericardium/Pleural There is no pericardial effusion. Inferior Vena Cava Normal inferior vena cava with >50% collapse upon inspiration consistent with normal right atrial pressure, 5 mmHg. Aorta The aortic root size at the sinus of Valsalva is normal. Left Ventricular Outflow Tract Name Value Normal LVOT 2D LVOT Diameter 1.7 cm LVOT Doppler LVOT Peak Gradient 5 mmHg LVOT Mean Gradient 3 mmHg LVOT VTI 26 cm LVOT VTI/AV VTI Ratio 0.5 LVOT Stroke Volume 63 ml LVOT CO 10.7 l/min Pulmonic Valve Name Value Normal PV Doppler PV Peak Gradient 3 mmHg Mitral Valve Name Value Normal MV Doppler MV Decel Holmes 414 cm/s2 MV PHT 73 ms MV Area (PHT) 3.0 cm2 4.0-5.0 MV Diastolic Function MV E Peak Velocity 104 cm/s MV A Peak Velocity 103 cm/s MV E/A 1.0 MV Decel Time 250 ms MV Annular TDI MV E/e' (Septal) 13.3 <=8.0 MV E/e' (Lateral) 11.0 <=8.0 MV E/e' (Average) 12.1 Tricuspid Valve Name Value Normal TV Regurgitation Doppler TR Peak Velocity 246 cm/s TR Peak Gradient 22 mmHg Estimated PAP/RSVP RA Pressure 5 mmHg <=5 PA Systolic Pressure 29 mmHg <36 RV Systolic Pressure 29 mmHg <36 Aorta Name Value Normal Ascending Aorta Ao Root Diameter (MM) 2.8 cm Aortic Valve Name Value Normal AV Doppler AV Peak Velocity 212 cm/s AV Peak Gradient 18 mmHg AV Mean Gradient 11 mmHg AV VTI 51 cm AV Area (Cont Eq VTI) 1.2 cm2 >=3.0 AV Area (Cont Eq Vishal) 1.3 cm2 AV Regurgitation 2D LVOT Area 2.4 cm2 Ventricles Name Value Normal LV Dimensions 2D/MM IVS Diastolic Thickness (2D) 1.0 cm 0.6-1.0 LVID Diastole (2D) 3.7 cm 3.8-5.2 LVIW Diastolic Thickness (2D) 1.0 cm 0.6-0.9 LVID Systole (2D) 2.2 cm 2.2-3.5 LVOT Diameter 1.7 cm LV Mass (2D Cubed) 116.00 g 67.00-162.00 Relative Wall Thickness (2D) 0.54 LV Fractional Shortening/Ejection Fraction 2D/MM LV Fractional Shortening (2D) 42 % 27-45 LV EF (2D Teicholz) 74 % 54-74 LV Diastolic Volume (4C MOD) 62 ml LV EF (4C MOD) 74 % LV Diastolic Volume (2C MOD) 61 ml LV EF (2C MOD) 68 % LV Diastolic Volume (BP MOD) 63 ml 46-106 LV Systolic Volume (BP MOD) 18 ml 14-42 LV EF (BP MOD) 72 % 54-74 LV Diastolic Length (4C) 7.3 cm LV Systolic Length (4C) 5.6 cm LV Stroke Volume (4C MOD) 46 ml RV Dimensions 2D/MM RVID Diastole (2D) 3.4 cm 2.5-3.5 Atria Name Value Normal LA Dimensions LA Dimension (MM) 3.6 cm 2.7-3.8 LA Volume (4C A-L) 37 ml LA Volume (BP A-L) 41 ml RA Dimensions RA Area (4C) 12.3 cm2 <=18.0 Report Signatures
--- OUTSIDE RECORDS SUMMARY | 2024-07-30 16:02 | XMS_ITS | Clinical Summary ---
Author Organization [facility] Address Formerly [facility] [place] [address] Care Team Providers Care Cake Decorator Name Role Phone Rad Jorge MD Primary Care Provider [phone] Allergies No known active allergies Medications ARIPiprazole [...] 12/04/2017 Chronic fatigue 11/20/2017 Rash 11/20/2017 Seizures ([facility]) 07/05/2016 Dizziness 06/20/2016 Gastroesophageal reflux disease without [...] Comments Blood Pressure 130/80 06/20/2023 10:48 AM HOOK TENDER Pulse 64 06/20/2023 10:48 AM HOOK TENDER Temperature 36.7 C (98.1 F) 06/20/2023 10:48 AM HOOK TENDER Respiratory Rate 16 06/20/2023 10:48 AM HOOK TENDER Oxygen Saturation 98% 06/20/2023 10:48 AM HOOK TENDER Inhaled Oxygen Concentration - - Weight 78.5 kg (173 lb) 06/20/2023 10:48 AM HOOK TENDER Height 157.5 cm (5' 2 ) 06/20/2023 10:48 AM HOOK TENDER Body Mass Index 31.64 06/20/2023 10:48 AM HOOK TENDER Plan of Treatment Health Maintenance Due Date Last Done Comments ASCVD Statin 1945 PHQ-2 (Physician [place]) 1956 DTaP, Tdap and Td Vaccines (1 - Tdap) 08/08/1963 Zoster Vaccines (1 of 2) 1994 RSV Immunization or 60+ Years (1 - 1-dose 75+ series) 08/08/2019 ASCVD LDL 12/22/2021 12/22/2020, 12/13, 11/27/2017, Additional history exists Annual Medicare Wellness Visit 01/25/2022 01/24/2021 COVID-19 Vaccine ( season) 2024 03/14/2022, 09/13/2020, 08/23/2020 Influenza Adult (#1) 2024 04/10/2023, 03/06/2022, 01/13/2020, Additional history exists PHQ-2 (Physician [place]) 05/14/2024 Hepatitis C 06/20/2053 Postponed from 1962 [...] 252(H) <200 MG/DL 12/23/2020 12:35 AM CDT [facility] TRIGLYCERIDES 119 <150 MG/DL 12/23/2020 12:35 AM CDT [facility] HDL 59 >40 MG/DL 12/23/2020 12:35 AM CDT [facility] LDL-C 169(H) <100 MG/DL 12/23/2020 12:35 AM CDT [facility] VLDL CALCULATION 24 5 - 28 MG/DL 12/23/2020 12:35 AM CDT [facility] CHOL/HDL RATIO 4.3(H) 0.0 - 4.0 12/23/2020 12:35 AM CDT [facility] LDL/HDL 2.9(H) 0.41 - 2.13 12/23/2020 12:35 AM CDT [facility] NON HDL CHOLESTEROL 193(H) <140 MG/DL 12/23/2020 12:35 AM CDT [facility] 12/22/2020 11:0 4 AM CDT Rad Jorge MD LABORATORY Final Result [facility] [address] [place] [address], [place] [phone] from Last 3 Months or Most Recently Relevant to Health Maintenance Insurance MEDICARE [facility] Advance Directives Documents on File Type Date Recorded Patient Hat Brusher Machine Expl anation Advance Directives and Living Will 08/01/2021 8:36 AM 07/27/2021 HC POA Advance Directives and Living Will 08/01/2021 8:36 AM 07/13/2021 [place]IV[place] Care Teams Cake Decorator Relationship Specialty Start Date End Date Rda Jorge MD [address] [address] PCP - General 05/11/15
--- OUTSIDE RECORDS SUMMARY | 2024-07-30 16:02 | XMS_ITS | Encounter Summary ---
Author Organization [facility] Address [address] [place] [address] Care Team Providers Care Speech Communication Instructor Name Role Phone Ronan Roberto MD Unavailable [phone] Rad Jorge MD Primary Care Provider [phone] Encounter Details Date Type Department Care Team (Late st Contact Info) Description 06/13/2019 Lab Requisition [facility] DermPath Lab [address] [facility] [place] [address] Fior Colmenares DO [address] [facility] [address] [place] [address] Social History Tobacco Use Types Packs/Day Years [...] Comments DERMATOPATHOLOGY Routine 06/12/2019 12:0 0 AM BIOMETRIC SCREENER documented in this encounter Results * DERMATOPATHOLOGY (06/12/2019 12:00 AM BIOMETRIC SCREENER) Case Report Dermatopathology Report Case: [id number] Authorizing Provider: Fior Colmenares DO Collected: 06/12/2019 12:00 AM Ordering Location: [facility] DermPath Lab Received: 06/13/2019 06:46 AM Pathologist: Sabra Brandon MD Specimen: Skin, left nasal facial sulcus 0 11:40 AM BIOMETRIC SCREENER DERMATOPATHOLOGY LABORATORY Final Diagnosis Specimen A. SKIN, left nasal facial sulcus: BASAL CELL CARCINOMA (C44.311) (see microscopic description and comment) 0 11:40 AM [facility] DERMATOPATHOLOGY LABORATORY Clinical History R/O BCC. 0 11:40 AM [facility] DERMATOPATHOLOGY LABORATORY Gross Description Specimen A: Received is one formalin filled container labeled with the patient's name and designated left nasal facial sulcus. The specimen consists of a shave measuring [id number]. Jar 0. 0 11:40 AM [facility] DERMATOPATHOLOGY LABORATORY Microscopic Description Specimen A. SKIN, left nasal facial sulcus: The specimen consists of aggregates of basaloid cells, located within the superficial dermis, with high nuclear to cytoplasmic ratio and peripheral palisading. COMMENT: The small size of the specimen limits subtyping of the lesion. 0 11:40 AM [facility] DERMATOPATHOLOGY LABORATORY Disclaimer An external and internal positive and negative controls are appropriate for the histochemical, immunohistochemical and immunofluorescence stain(s) in this case (if any), except where stated explicitly. The performance characteristics of the stain(s) cited in this report were developed and its performance characteristic determined by the Dermatopathology Laboratory at [facility], directed by Dr. Jose Roberto Thornton. These tests need not be, and therefore are not, approved by the [place] Food and Drug Administration. The tests are used for clinical purposes. Billing Codes Specimen Charges Stain Charges 70709 1 0 11:40 AM [facility] DERMATOPATHOLOGY LABORATORY Embedded Images 0 11:40 AM [facility] DERMATOPATHOLOGY LABORATORY Pathology/Cytolog y TISSUE SPECIMEN FROM SKIN / Unknown 06/12/2019 06/13/2019 6:46 AM BIOMETRIC SCREENER Fior Colmenares DO LAB - PATHOLOGY/C YTOLOGY ORDERABLES DERMATOPATHOLOGY LABORATORY [facility] - Department of Dermatology [address] [place] [address], [address] [place] [address], [facility] [phone] documented in this encounter Visit Diagnoses Not on filedocumented in this encounter Care Teams Speech Communication Instructor Relationship Specialty Start Date End Date Rad Jorge MD PCP - General Family Medicine 03/06/19 Ronan Roberto MD Orthopedist Orthopedic Surgery 10/23/16 documented as of this encounter
--- OUTSIDE RECORDS SUMMARY | 2024-07-30 16:02 | XMS_ITS | Encounter Summary ---
Author Organization [facility] Address [address] [place] [address] Care Team Providers Care Avionics System Engineer Name Role Phone Ronan Roberto MD Unavailable [phone] Rad Jorge MD Primary Care Provider [phone] Encounter Details Date Type Department Care Team (Late st Contact Info) Description 09/06/2023 Lab Requisition [facility] - DermPath Lab [address] [facility] [place] [address] Fior Colmenares DO [address] [facility] [address] [place] [address] Social History Tobacco Use Types Packs/Day Years [...] AM CDT) Case Report Dermatopathology Report Case: [id number] Authorizing Provider: Fior Colmenares DO Collected: 09/06/2023 11:06 AM Ordering Location: [facility] Physician [facility] - Received: 09/07/2023 09:26 AM DermPath [...] characteristic determined by the Dermatopathology Laboratory at [facility], directed by Dr. Jose Roberto Thornton. These tests need not be, and therefore are not, approved by the [place] Food and Drug Administration. The tests are used for clinical purposes. Billing Codes Specimen Charges Stain Charges 93761 1 4 2:39 PM CDT DERMATOPATHOLOGY LABORATORY Embedded Images 2:39 PM CDT DERMATOPATHOLOGY LABORATORY Pathology/Cytolo gy TISSUE SPECIMEN FROM SKIN / Unknown 09/06/2023 11:06 AM CDT 09/07/2023 9:26 AM CDT Fior Colmenares DO LAB - PATHOLOGY/C YTOLOGY ORDERABLES DERMATOPATHOLOGY LABORATORY [facility] - Department of Dermatology [facility] Medicine [address] [place] [address], [address] [phone] documented in this encounter Visit Diagnoses Not on filedocumented in this encounter Care Teams Avionics System Engineer Relationship Specialty Start Date End Date Rad Jorge MD PCP - General Family Medicine 03/06/19 Ronan Roberto MD Orthopedist Orthopedic Surgery 10/23/16 documented as of this encounter
--- OUTSIDE RECORDS SUMMARY | 2024-07-30 16:02 | XMS_ITS | CONTINUITY OF CARE DOCUMENT ---
Author Name will solis Address Unknown Organization [facility] Address [address] [facility] [address] [place] [address] Phone [phone] Care Team Providers Care Disk Recordist Name Role Phone Bryce BASURTO, Luis A Unavailable LUDIN WAGONER Unavailable Unavailable INSURANCE PROVIDERS Payer name Policy type / Coverage type Sharmila red alliance party ID [facility] [id number] [place] MEDICARE Medicare [id number]
--- OUTSIDE RECORDS SUMMARY | 2024-07-30 16:02 | XMS_ITS | Encounter Summary ---
Author Organization [facility] Address [facility] [place] [address] Care Team Providers Care Director Of Public Works Name Role Phone Rad Jorge MD Primary Care Provider + Rad Jorge MD Unavailable [phone] Encounter Details Date Type Department Care Team (Late st Contact Info) Description 03/15/2018 Abstract [facility] Family and Sports Medicine - [place] [address] [place] [address] Rad Jorge MD [address] [place] [address] Social History Tobacco Use Types Packs/Day Years [...] prep laquita for the med group go [facility] -Sabra Fabian CMA documented in this encounter Plan of Treatment Not on file documented as of this encounter Visit Diagnoses Not on filedocumented in this encounter Additional Health Concerns Assessment Noted Time PHQ-9 Depression Total Score: 7 03/12/20 18 11:39 AM CDT documented as of this encounter Care Teams Director Of Public Works Relationship Specialty Start Date End Date Rad Jorge MD [address] [place] [address] PCP - General 05/11/15 Rad Jorge MD [address] [place] [address] PCP - Med Group - [facility] Attributed Provider 05/14/15 05/13/22 documented as of this encounter
--- OUTSIDE RECORDS SUMMARY | 2024-07-30 16:02 | XMS_ITS | Clinical Summary ---
Author Organization [facility] Address [address] [facility] [place] [address] Care Team Providers Care Lumber Tallier Name Role Phone Ronan Roberto MD Unavailable [phone] Rad Jorge MD Primary Care Provider [phone] Source Comments [facility],non-owned Affiliates and Associated Physician Practices is amultiple site organization consisting of ambulatory clinics and hospital sitesin [place], [place], [place] and [place]. This disclosure is being madepursuant to the Care Everywhere program and may not contain all information available regarding this patient. Last updated 18.[facility] Allergies No known active allergies Medications * [...] 78 kg (172 lb) 04/03/2019 10:27 AM METAL DRILL PRESS OPERATOR Height 157.5 cm (5' 2 ) 04/03/2019 10:27 AM METAL DRILL PRESS OPERATOR Body Mass Index 31.46 04/03/2019 10:27 AM METAL DRILL PRESS OPERATOR Plan of Treatment Health Maintenance Due Date [...] to complete this topic MENINGOCOCCAL (Group B) VACC INE SHARED DECISION-MAKING Aged Out No longer eligibl e based on patient's age to complete this topic MENINGOCOCCAL GROUPS A/C/Y/W VACCINE Aged Out No longer eligible b ased on patient's age to complete this topic Care Teams Lumber Tallier Relationship Specialty Start Date End Date Rad Jorge MD PCP - General Family Medicine 03/06/19 Ronan Roberto MD Orthopedist Orthopedic Surgery 10/23/16
== END 2024-07-30 14:22 | disposition home or self-care (01) ==
LOC: ANHCARD 14:22
PROVIDERS: PCP Internal Medicine; Visit Provider Internal Medicine
DX: R42 Dizziness and giddiness (principal); I10 Essential (primary) hypertension; Z82.49 Family history of ischemic heart disease and other diseases of the circulatory system; I36.1 Nonrheumatic tricuspid (valve) insufficiency
CPT/HCPCS: 93306

== ENCOUNTER 2025-01-05 14:18 | Outpatient (CLI) | payer MEDICARE, SELFPAY ==
--- NOTE | ~2025-01-05 | DEXA_ITS ---
Bone Density Report Name: VAISHALI CELESTE Age: 79 Sex: Female Ethnicity: White Date of : 1945 Indication: osteopenia; height loss; Referring Provider: FENG ENGEL Study: Bone densitometry was performed. Exam Date: January 05, 2025 Accession number: [id number] Bone Density: Region BMD T-score Z-score Classification AP Spine(L1-L4) 0.935 -1.0 1.7 Normal Femoral Neck (Left) 0.501 -3.1 -0.8 Osteoporosis Total Hip (Left) 0.687 -2.1 0.0 Osteopenia Femoral Neck (Right) 0.509 -3.1 -0.7 Osteoporosis Total Hip (Right) 0.700 -2.0 0.1 Osteopenia Total Hip Mean 0.694 -2.1 0.1 Osteopenia World Health Organization criteria for BMD impression classify patients as: Normal (T-score at or above -1.0), Osteopenia (T-score between -1.0 and -2.5), or Osteoporosis (T-score at or below -2.5). 10-year Fracture Risk: FRAX not reported because: Some T-score for Spine Total or Hip Total or Femoral Neck at or below -2.5 Previous Exams: -- Region Exam Age BMD T-score BMD Change BMD Change Date g/cm2 vs Baseline vs Previous -- AP Spine (L1-L4) 01/05/2025 79 0.935 -1.0 5.3%* 5.3%* 04/28/2021 75 0.888 -1.4 Total Hip(Left) 01/05/2025 79 0.687 -2.1 -4.8%* -4.8%* 04/28/2021 75 0.722 -1.8 Total Hip(Right) 01/05/2025 79 0.700 -2.0 -5.6%* -5.6%* 04/28/2021 75 0.742 -1.6 -- *Denotes significance at 95% confidence level, LSC for AP Spine = 0.022 g/cm2, LSC for Total Hip = 0.027 g/cm2 Clinical Information Provided by Patient: Has used the following medications: Vitamin D Patient maximum height was 62 Menopause Age: 48 No regular weight bearing exercise Drinks caffeinated beverages Onset of menses at age 13 Number of children 2 Impression: The patient has osteoporosis, based on the Left Femoral Neck T-score. The BMD for the Total Hip(Left) decreased, changing by -4.8% since the last DXA exam. The BMD for the Total Hip(Right) decreased, changing by -5.6% since the last DXA exam. Discussion: INCREASED RISK OF FRACTURE. BONE DENSITY IS UNDESIRABLY LOW AT ONE OR MORE SKELETAL SITES, CONSISTENT WITH POSTMENOPAUSAL OSTEOPOROSIS. This patient's lowest T-score meets the World Health Organization's (WHO) criteria for osteoporosis at one or more sites (T-score -2.5 or below). In untreated patients, the risk of osteoporotic fracture increases approximately two-fold for each 1.0 SD decrease in T-score. Low bone density is not the only risk factor for fracture; also consider factors such as patient's age, frailty or poor health, risk of falling, risk of injury, previous osteoporotic fracture, family history of osteoporosis, cigarette smoking, low body weight, etc. Not everyone with low bone mineral density has osteoporosis; osteomalacia and other metabolic bone disorders should also be considered. Patients who have osteoporosis should be evaluated for specific diseases and conditions (secondary causes) that may cause or contribute to bone loss. The [place] Association of Clinical Endocrinologists (AACE) and National Osteoporosis Foundation (NOF) recommend pharmacologic intervention for all postmenopausal women whose T-score is in this range. The patient should follow a healthful lifestyle (good nutrition with adequate calcium and vitamin D, and appropriate weight-bearing exercise). Follow-Up: Consider a repeat BMD and Vertebral Fracture Assessment (VFA) exam in 2 years or sooner if medically necessary, to reassess this patient's status. Reported by: HARRIETT on 01/05/2025 3:01:00 PM. Reviewed, dictated and finalized at location A.
== END 2025-01-05 14:19 | disposition home or self-care (01) ==
LOC: MICIMG 14:19
PROVIDERS: PCP Internal Medicine; Visit Provider Internal Medicine
DX: Z78.0 Asymptomatic menopausal state (principal); M81.0 Age-related osteoporosis without current pathological fracture; M85.852 Other specified disorders of bone density and structure, left thigh; M85.851 Other specified disorders of bone density and structure, right thigh
CPT/HCPCS: 77080

== ENCOUNTER 2025-01-13 12:17 | Outpatient (CLI) | payer MEDICARE, SELFPAY ==
--- OUTSIDE RECORDS SUMMARY | 2025-01-13 12:20 | XMS_ITS | Clinical Summary ---
Author Organization [facility] Address [address] [place] [address] Care Team Providers Care Icu Rn Name Role Phone Ronan Roberto MD Unavailable [phone] Rad Jorge MD Primary Care Provider Source Comments [facility],non-owned Affiliates and Associated Physician Practices is amultiple site organization consisting of ambulatory clinics and hospital sitesin [place], [place], [place] and [place]. This disclosure is being madepursuant to the Care Everywhere program and may not contain all information available regarding this patient. Last updated 18.[facility] Allergies No known active allergies Medications * Be aware that medications may not be up to date on this document. Alwaysverify current medications with the patient. escitalopram (LEXAPRO) 20 MG tablet Take 20 mg by mouth once daily Active AMLODIPINE BESYLATE PO Take 5 mg by mouth Active pravastatin (PRAVACHOL) 40 MG tablet Take 40 mg by mouth at bedtime Active levETIRAcetam (KEPPRA) 500 MG tabletIndicatio ns:Chronic left shoulder pain Take 500 mg by mouth 2 times daily Active methylPREDNISol one (MEDROL DOSEPAK) 4 MG tabletIndicatio ns:Chronic left shoulder pain Take by mouth as directed 21 Each 1 03/06/2019 Active Active Problems Problem Noted Date Diagnosed Date Bursitis of left shoulder 01/23/2017 Social History Tobacco Use Types Packs/Day Years Used Date Smoking Tobacco: Never Smokeless Tobacco: Never Comments Unknown Sex and Gender Information Value Date Recorded Sex Assigned at Not on file Legal Sex Female 12:20 PM CDT Gender Identity Not on file Sexual Orientation Not on file Last Filed Vital Signs Vital Sign Reading Time Taken Comments Blood Pressure - - Pulse 68 10/23/2016 2:16 PM CDT Temperature - - Respiratory Rate - - Oxygen Saturation - - Inhaled Oxygen Concentration - - Weight 78 kg (172 lb) 04/03/2019 10:27 AM SALES SPECIALIST Height 157.5 cm (5' 2) 04/03/2019 10:27 AM SALES SPECIALIST Body Mass Index 31.46 04/03/2019 10:27 AM SALES SPECIALIST Plan of Treatment Health Maintenance Due Date [...] VACCINE ( - 2023-2 5 season) 2024 DEPRESSION SCREENING 05/14/2024 INFLUENZA VACCINE (#1) 2025 01/12/2017 HEPATITIS B VACCINE Aged Out No longe [...] on patient's age to complete this topic Insurance MEDICARE ANTHEM MEDICARE ANTHEM Care Teams Icu Rn Relationship Specialty Start Date End Date Rad Jorge MD PCP - General Family Medicine 03/06/19 Ronan Roberto MD Orthopedist Orthopedic Surgery 10/23/16
--- OUTSIDE RECORDS SUMMARY | 2025-01-13 12:20 | XMS_ITS | Encounter Summary ---
Author Organization [facility] Address [address] [address] Care Team Providers Care Mechanical Laboratory Technician Name Role Phone Ronan Roberto MD Unavailable [phone] Rad Jorge MD Primary Care Provider [phone] Encounter Details Date Type Department Care Team (Late st Contact Info) Description 09/06/2023 Lab Requisition [facility] - DermPath Lab [address] [facility] [place] [id number] Fior Colmenares DO [address] [facility] [address] [place] [address] Social History Tobacco Use Types Packs/Day Years [...] AM CDT) Case Report Dermatopathology Report Case: [id number] Authorizing Provider: Fior Colmenares DO Collected: 09/06/2023 11:06 AM Ordering Location: [facility] - Received: 09/07/2023 09:26 AM DermPath Lab Pathologist: Sabra Brandon MD Specimen: Skin, left frontal scalp 4 2:39 PM CDT DERMATOPATHOLOGY LABORATORY Final Diagnosis Specimen A. SKIN, left frontal scalp: INTRADERMAL MELANOCYTIC NEVUS (D22.4) 4 2:39 PM CDT DERMATOPATHOLOGY LABORATORY at 1439 CDT Clinical History IDN vs. BCC 4 2:39 [...] characteristic determined by the Dermatopathology Laboratory at [facility], directed by Dr. Jose Roberto Thornton. These tests need not be, and therefore are not, approved by the [place] Food and Drug Administration. The tests are used for clinical purposes. Billing Codes Specimen Charges Stain Charges 76217 1 4 2:39 PM CDT DERMATOPATHOLOGY LABORATORY Embedded Images 4 2:39 PM CDT DERMATOPATHOLOGY LABORATORY Pathology/Cytolo gy TISSUE SPECIMEN FROM SKIN / Unknown 09/06/2023 11:06 AM CDT 09/07/2023 9:26 AM CDT us Fior Colmenares DO LAB - PATHOLOGY/CYTOLOGY ORDERABLES Final Result DERMATOPATHOLOGY LABORATORY [facility] - Department of Dermatology [address], [address] [phone] documented in this encounter Visit Diagnoses Not on filedocumented in this encounter Care Teams Mechanical Laboratory Technician Relationship Specialty Start Date End Date Rad Jorge MD PCP - General Family Medicine 03/06/19 Ronan Roberto MD Orthopedist Orthopedic Surgery 10/23/16 documented as of this encounter
--- OUTSIDE RECORDS SUMMARY | 2025-01-13 12:20 | XMS_ITS | Encounter Summary ---
Author Organization [facility] Address [address] [place] [address] Care Team Providers Care Acoustical Tile Drill Press Operator Name Role Phone Ronan Roberto MD Unavailable [phone] Rad Jorge MD Primary Care Provider [phone] Encounter Details Date Type Department Care Team (Late st Contact Info) Description 06/13/2019 Lab Requisition [facility] DermPath Lab [address] [place] [address] Fior Colmenares DO [address] [facility] [address] [place] [address] Social History Tobacco Use Types Packs/Day Years [...] Comments DERMATOPATHOLOGY Routine 06/12/2019 12:0 0 AM DESK TOP PUBLISHER documented in this encounter Results * DERMATOPATHOLOGY (06/12/2019 12:00 AM DESK TOP PUBLISHER) Case Report Dermatopathology Report Case: [id number] Authorizing Provider: Fior Colmenares DO Collected: 06/12/2019 12:00 AM Ordering Location: [facility] DermPath Lab Received: 06/13/2019 06:46 AM Pathologist: Sabra Brandon MD Specimen: Skin, left nasal facial sulcus 0 11:40 AM [facility] DERMATOPATHOLOGY LABORATORY Final Diagnosis Specimen A. SKIN, left nasal facial sulcus: BASAL CELL CARCINOMA (C44.311) (see microscopic description and comment) 0 11:40 AM [facility] DERMATOPATHOLOGY LABORATORY at 1140 DESK TOP PUBLISHER Clinical History R/O BCC. 0 11:40 AM [facility] DERMATOPATHOLOGY LABORATORY Gross Description Specimen A: Received is one formalin filled container labeled with the patient's name and designated left nasal facial sulcus. The specimen consists of a shave measuring [id number]. Jar 0. 0 11:40 AM [facility] DERMATOPATHOLOGY LABORATORY Microscopic Description Specimen A. SKIN, left nasal facial sulcus: The specimen consists of aggregates of basaloid cells, located within the superficial dermis, with high nuclear to cytoplasmic ratio and peripheral palisading. COMMENT: The small size of the specimen limits subtyping of the lesion. 0 11:40 AM [facility] DERMATOPATHOLOGY LABORATORY Disclaimer An external and internal positive and negative controls are appropriate for the histochemical, immunohistochemical and immunofluorescence stain(s) in this case (if any), except where stated explicitly. The performance characteristics of the stain(s) cited in this report were developed and its performance characteristic determined by the Dermatopathology Laboratory at [facility], directed by Dr. Jose Roberto Thornton. These tests need not be, and therefore are not, approved by the [place] Food and Drug Administration. The tests are used for clinical purposes. Billing Codes Specimen Charges Stain Charges 86292 1 0 11:40 AM [facility] DERMATOPATHOLOGY LABORATORY Embedded Images 0 11:40 AM [facility] DERMATOPATHOLOGY LABORATORY Pathology/Cytolog y TISSUE SPECIMEN FROM SKIN / Unknown 06/12/2019 06/13/2019 6:46 AM [facility] us Fior Colmenares DO LAB - PATHOLOGY/CYTOLOGY ORDERABLES Final Result DERMATOPATHOLOGY LABORATORY [facility] - Department of Dermatology [address] [place] [address], [address]th [place] [address], [facility] [phone] documented in this encounter Visit Diagnoses Not on filedocumented in this encounter Care Teams Acoustical Tile Drill Press Operator Relationship Specialty Start Date End Date Rad Jorge MD PCP - General Family Medicine 03/06/19 Ronan Roberto MD Orthopedist Orthopedic Surgery 10/23/16 documented as of this encounter
== END 2025-01-13 12:18 | disposition home or self-care (01) ==
PROVIDERS: PCP Internal Medicine; Visit Provider Internal Medicine
DX: E55.9 Vitamin D deficiency, unspecified (principal)
CPT/HCPCS: 36415; 82306

== ENCOUNTER 2025-02-19 13:31 | Outpatient (CLI) | payer MEDICARE, SELFPAY ==
--- OUTSIDE RECORDS SUMMARY | 2025-02-19 13:42 | XMS_ITS | Encounter Summary ---
Author Organization [facility] Address [address] [place] [address] Care Team Providers Care Auto Polisher Name Role Phone Rad Jorge MD Primary Care Provider [phone] Rad Jorge MD Unavailable [phone] Encounter Details Date Type Department Care Team (Late st Contact Info) Description 03/15/2018 Abstract [facility] Family and Sports Medicine - [place] [address] [place] [address] Rad Jorge MD [address] [facility] [address] [facility] [address] [place] [address] Social History Tobacco Use Types Packs/Day Years Used Date Smoking Tobacco: Never Assessed Comments Unknown Sex and Gender Information Value Date Recorded Sex Assigned at Female 10/29/2024 9:51 AM CDT Legal Sex Female 8:04 PM CDT Gender Identity Not on file Sexual Orientation Not on file documented as of this encounter Progress Notes * Sabra Fabian MA - 03/15/2018 11:27 AM CDT This chart is being abstracted by prep laquita for the med group go [facility] -Sabra Fabian CMA documented in this encounter Plan of Treatment Not on file documented as of this encounter Visit Diagnoses Not on filedocumented in this encounter Additional Health Concerns Assessment Noted Time PHQ-9 Depression Total Score: 7 03/12/20 18 11:39 AM CDT documented as of this encounter Care Teams Auto Polisher Relationship Specialty Start Date End Date Rad Jorge MD [address] [place] [address] PCP - General 05/11/15 Rad Jorge MD [address] [place] [address] PCP - Med Group - [facility] Attributed Provider 05/14/15 05/13/22 documented as of this encounter
--- OUTSIDE RECORDS SUMMARY | 2025-02-19 13:42 | XMS_ITS | Clinical Summary ---
Author Organization [facility] Address [address] [place] [address] Care Team Providers Care Auger Operator Name Role Phone Rad Jorge MD Primary Care Provider [phone] Allergies No known active allergies Medications ARIPiprazole [...] 12/04/2017 Chronic fatigue 11/20/2017 Rash 11/20/2017 Seizures ([facility]) 07/05/2016 Dizziness 06/20/2016 Gastroesophageal reflux disease without [...] for preventive health examination 07/28/2014 01/23/2020 Immunizations Immunization Administration Dates Next Due Fluarix 04/10/2023 Fluzone [...] Comments Blood Pressure 130/80 06/20/2023 10:48 AM AXLE TURNER Pulse 64 06/20/2023 10:48 AM AXLE TURNER Temperature 36.7 C (98.1 F) 06/20/2023 10:48 AM AXLE TURNER Respiratory Rate 16 06/20/2023 10:48 AM AXLE TURNER Oxygen Saturation 98% 06/20/2023 10:48 AM AXLE TURNER Inhaled Oxygen Concentration - - Weight 78.5 kg (173 lb) 06/20/2023 10:48 AM AXLE TURNER Height 157.5 cm (5' 2) 06/20/2023 10:48 AM AXLE TURNER Body Mass Index 31.64 06/20/2023 10:48 AM AXLE TURNER Plan of Treatment Health Maintenance Due Date Last Done Comments ASCVD Statin 1945 DTaP, Tdap and Td Vaccines (1 - Tdap) 08[birth year]08/1964 Zoster Vaccines (1 of 2) 1994 RSV Immunization or 60+ Years (1 - 1-dose 75+ series) 08/08/2019 ASCVD LDL 12/22/2021 12/22/2020, 12/13, 11/27/2017, Additional history exists Annual Medicare Wellness Visit 01/25/2022 01/24/2021 PHQ-2 (Physician [place]) 05/14/2024 COVID-19 Vaccine ( season) 2025 03/14/2022, 09/13/2020, 08/23/2020 Influenza Adult (#1) 2025 04/10/2023, 03/06/2022, 01/13/2020, Additional history exists Pneumococcal Vaccine: 50+ Years Completed 01/13/2020, 02/05/2018 Dexa Scan (General) [...] 252(H) <200 MG/DL 12/23/2020 12:35 AM CDT [facility] TRIGLYCERIDES 119 <150 MG/DL 12/23/2020 12:35 AM CDT [facility] HDL 59 >40 MG/DL 12/23/2020 12:35 AM CDT [facility] LDL-C 169(H) <100 MG/DL 12/23/2020 12:35 AM CDT [facility] VLDL CALCULATION 24 5 - 28 MG/DL 12/23/2020 12:35 AM CDT [facility] CHOL/HDL RATIO 4.3(H) 0.0 - 4.0 12/23/2020 12:35 AM CDT [facility] LDL/HDL 2.9(H) 0.41 - 2.13 12/23/2020 12:35 AM CDT [facility] NON HDL CHOLESTEROL 193(H) <140 MG/DL 12/23/2020 12:35 AM CDT [facility] 12/22/2020 11:0 4 AM CDT Rad Jorge MD LABORATORY Final Result [facility] [place] [address] [place] [address], from Last 3 Months or Most Recently Relevant to Health Maintenance Insurance MEDICARE [facility] Advance Directives Documents on File Type Date Recorded Patient Warehouse Helper Expl anation Advance Directives and Living Will 08/01/2021 8:36 AM 07/27/2021 HC POA Advance Directives and Living Will 08/01/2021 8:36 AM 07/13/2021 [place] Care Teams Auger Operator Relationship Specialty Start Date End Date Rad Jorge MD [address] [facility] [address] [place] [address] PCP - General 05/11/15
[2025-02-19 14:11] LABS: Hematocrit 42.2 % (37.0-47.0); Hemoglobin 13.9 g/dL (12.0-15.0); Immature Granulocyte Percent A 0.3 % (0-0.5); Lymphocytes Absolute Auto 2.05 K/mm3 (0.9-3.2); Mean Corpuscular HGB Conc 32.9 g/dl (32-36); Mean Corpuscular Hemoglobin 31.4 pg (26-34); Mean Corpuscular Volume 95.3 fl (80-100); Nucleated Red Blood Cells Absolute Auto 0.000 K/mm3 (0.0-0.012); Nucleated Red Blood Cells Perc 0.0 % (0.0-0.2); Platelet Count Result 227 k/mm3 (150-375); Red Blood Count 4.43 M/mm3 (4.2-5.4); White Blood Count 6.3 K/mm3 (4.5-10.0)
[2025-02-19 14:15] LABS: Add Urine Microscopic? YES; Appearance Urine Cloudy (Clear); Glucose Urine UA Negative (Negative); Leukocyte Esterase Ur Negative LEU/UL (Negative); Nitrate Urine Negative (Negative); Non Pathogenic Casts 0-2; Specific Grav Ur 1.016 (1.001-1.035)
[2025-02-19 14:25] LABS: Alanine Aminotransferase 20 U/L (6-35); Albumin Level 4.1 g/dL (3.5-5.1); Alkaline Phosphatase 53 U/L (38-126); Anion Gap 7 mmol/L (4-12); Aspartate Amino Transferase 33 U/L (14-36); Bilirubin,Total 1.0 mg/dL (0.2-1.3); Blood Urea Nitrogen 14 mg/dL (7-17); Calcium 9.3 mg/dL (8.4-10.2); Carbon Dioxide 25 mmol/L (22-30); Chloride 105 mmol/L (98-107); Cholesterol 187 mg/dL (0-200); Estimated Glomerular Filt Rate 53; Glucose 103 mg/dL (65-110); HDL Direct 56 mg/dL; Potassium 4.0 mmol/L (3.4-5.0); Sodium 137 mmol/L (137-145); Total Protein 7.5 g/dL (6.3-8.2); Triglycerides 146 mg/dL (<150)
== END 2025-02-19 13:32 | disposition home or self-care (01) ==
LOC: ANHLAB 13:37
PROVIDERS: PCP Internal Medicine; Visit Provider Internal Medicine
DX: I10 Essential (primary) hypertension (principal); E78.5 Hyperlipidemia, unspecified; Z79.899 Other long term (current) drug therapy
CPT/HCPCS: 36415; 80053; 80061; 81001; 85025

== ENCOUNTER 2025-03-03 11:33 | Outpatient (CLI) | payer MEDICARE, SELFPAY ==
--- NOTE | ~2025-03-03 | XR_ITS ---
EXAMINATION: XR pelvis 1-2V, 03/03/2025 11:57 CDT HISTORY: M54.50 - Low back pain, unspecified COMPARISON: No comparisons available. Findings: No acute fracture or malalignment. Moderate degenerative changes Soft tissues unremarkable. Impression: No acute fracture or malalignment. Reviewed, dictated and finalized at location P. Impression: No acute fracture or malalignment.
--- NOTE | ~2025-03-03 | XR_ITS ---
XR lumbar spine min 4V Indication: G57.10 - Meralgia paresthetica, unspecified lower limb Comparison: None Findings: Moderate loss of vertebral heights. Grade 1 anterolisthesis of L4 on L5, grade 1 retrolisthesis of L1 on L2 and L2 on L3, no fracture is identified. Moderate to severe loss of disc height throughout. Soft tissues unremarkable Impression: No acute abnormality. Reviewed, dictated and finalized at location P. Impression: No acute abnormality.
== END 2025-03-03 11:34 | disposition home or self-care (01) ==
LOC: ANHIMG 11:36
PROVIDERS: PCP Internal Medicine; Visit Provider Internal Medicine
DX: R29.890 Loss of height (principal); M43.16 Spondylolisthesis, lumbar region; G57.10 Meralgia paresthetica, unspecified lower limb; M79.604 Pain in right leg
CPT/HCPCS: 72110; 72170

== ENCOUNTER 2025-04-21 12:06 | Outpatient (CLI) | payer MEDICARE, SELFPAY ==
--- NOTE | ~2025-04-21 | XR_ITS ---
EXAMINATION: XR shoulder RT min 2V, 04/21/2025 12:25 CDL TRUCK DRIVER HISTORY: M25.519 - Pain in unspecified shoulder, injury COMPARISON: No comparisons available. Findings: No acute fracture or malalignment. Mild to moderate degenerative changes Soft tissues unremarkable. Impression: No acute fracture or malalignment. Reviewed, dictated and finalized at location P. TRUCK DRIVER Impression: No acute fracture or malalignment.
--- NOTE | ~2025-04-21 | XR_ITS ---
EXAMINATION: AP and lateral soft tissue views of the neck: DATE: 04/21/2025 INDICATION: Right-sided pain. TECHNIQUE: AP and lateral views of the neck including soft tissue. were obtained. COMPARISON: None. FINDINGS: Prevertebral soft tissues are normal. Airway are normal. Epiglottis is normal. No soft tissue calcifications are seen. Severe degenerative disc changes and facet arthropathy at C5-6 level with facet arthropathy and minimal anterolisthesis at C4-5 level. IMPRESSION: 1. No abnormalities of the soft tissues of the neck in AP and lateral projection. 2. Significant multilevel degenerative changes of C-spine as described above. Reviewed, dictated and finalized at location T. INAL SUPERVISOR IMPRESSION: 1. No abnormalities of the soft tissues of the neck in AP and lateral projectio n. 2. Significant multilevel degenerative changes of C-spine as described above.
== END 2025-04-21 12:07 | disposition home or self-care (01) ==
PROVIDERS: PCP Internal Medicine; Visit Provider Internal Medicine
DX: M25.511 Pain in right shoulder (principal); W19.XXXA Unspecified fall, initial encounter; M50.30 Other cervical disc degeneration, unspecified cervical region
CPT/HCPCS: 70360; 73030